=== PATIENT | female | born 1975 | race Caucasian/White ===

== ENCOUNTER 2018-01-20 14:08 | Inpatient (IN) | payer MEDICARE, OTHER ==
[2018-01-20] MEDS ORDERED: SODIUM CHLORIDE 0.9% 1,000 ML IV ONE (15:11)
[2018-01-20 15:38] LABS: Glucose,Whole Blood 104 mg/dL (75-99)
[2018-01-20 15:47] LABS: Anisocytosis Slight; Basophils # (A) 0.1 k/uL (0-0.2); Basophils % (A) 1 %; Eosinophils # (A) 0.1 k/uL (0-0.7); Eosinophils % (A) 1 %; Hypochromasia Marked; Lymphocytes # (A) 1.8 k/uL (1.0-4.8); Lymphocytes % (A) 12 %; MCH 30.3 pg (25.0-35.0); MCHC 30.2 g/dL (31.0-37.0); MCV 100.3 fL (80.0-100.0); Macrocytosis Slight; Mean Platelet Volume 7.5; Monocytes # (A) 0.4 k/uL (0-1.0); Monocytes % (A) 2 %; Neutrophils # (A) 12.6 k/uL (1.3-7.7); Neutrophils % (A) 83 %; Platelet Count 435 k/uL (150-450); RBC 1.96 m/uL (3.80-5.40); RDW 18.5 % (11.5-15.5); WBC 15.3 k/uL (3.8-10.6)
[2018-01-20 15:52] LABS: HCT 19.7 % (34.0-46.0)
[2018-01-20 15:53] LABS: Amphetamine Screen,Urine Detected (NotDetected); Barbiturate Screen,Urine Not Detected (NotDetected); Benzodiazepines Screen,Urine Not Detected (NotDetected); Cocaine Screen,Urine Not Detected (NotDetected); Methadone Screen, Urine Not Detected (NotDetected); Opiate Screen,Urine Detected (NotDetected); Oxycodone Screen, Urine Not Detected (NotDetected); Phencyclidine Screen,Urine Not Detected (NotDetected); Tricyclic Antidepressant,Urine Not Detected (NotDetected); Urn Cannabinoid Scrn Not Detected (NotDetected)
[2018-01-20 15:54] LABS: Appearance,Urine Cloudy (Clear); Color,Urine Yellow; PH, Urine 5.5 (5.0-8.0); Protein,Urine 1+ (Negative); Specific Gravity,Urine 1.015 (1.001-1.035)
[2018-01-20 15:55] LABS: Bacteria,Urine Moderate /hpf; Bilirubin,Urine Negative (Negative); Blood,Urine Small (Negative); Glucose,Urine (UA) Negative (Negative); Hyaline Casts,Urine 19 /lpf (0-2); Ketones,Urine Negative (Negative); Leukocyte Esterase,Urine Large (Negative); Mucus,Urine Rare /hpf; Nitrite,Urine Negative (Negative); RBC,Urine 69 /hpf (0-5); Squamous Epithelial Cell,Urine 1 /hpf (0-4); Urobilinogen,Urine <2.0 mg/dL (<2.0); WBC,Urine >182 /hpf (0-5)
--- NOTE | 2018-01-20 15:57 | XR ---
EXAMINATION TYPE: XR chest 2V DATE OF EXAM: 01/20/2018 COMPARISON: NONE HISTORY: Altered mental status TECHNIQUE: Frontal and lateral views of the chest are obtained. FINDINGS: There is no focal air space opacity, pleural effusion, or pneumothorax seen. The cardiac silhouette size is within normal limits. The osseous structures are intact. There are overlying car diac leads. IMPRESSION: No acute cardiopulmonary process.
[2018-01-20 15:58] LABS: Albumin 3.1 g/dL (3.5-5.0); Calcium 10.7 mg/dL (8.4-10.2); Potassium 3.5 mmol/L (3.5-5.1); Total Protein 7.2 g/dL (6.3-8.2)
[2018-01-20 15:59] LABS: Creatine Kinase <20 U/L (30-135)
[2018-01-20 16:02] LABS: INR 1.2 (<1.2); Partial Thromboplastin Time 24.3 sec (22.0-30.0); Prothrombin Time 11.3 sec (9.0-12.0)
[2018-01-20 16:12] LABS: Creatine Kinase MB 0.2 ng/mL (0.0-2.4); Troponin I <0.012 ng/mL (0.000-0.034)
--- NOTE | 2018-01-20 16:15 | ED ---
Altered Mental Status HPI - General Source: patient, EMS, RN notes reviewed Mode of arrival: EMS Limitations: no limitations <Duane Bhandari - Last Filed: 01/20/18 18:18> <Jerry Ochoa - Last Filed: 01/20/18 18:36> - General Chief Complaint: Altered Mental Status Stated Complaint: ALTERED MENTAL Time Seen by Provider: 01/20/18 14:57 - History of Present Illness Initial Comments: This a 42-year-old female presents emergency department for multiple complaints. Primary complaint is urinary tract infection, back pain. Patient states she's been treated for urinary tract infection last 5 days. Patient states she saw PCP today her that she needed to the hospital because of worsening symptoms. Patient is confused and information is limited. Patient also states that she has some discoloration or bruising to her abdomen in which she believes is related from a heating pad. Patient denies any current chest pain or shortness of breath. She states she's had intermittent headache and dizziness. Patient does admit to dysuria and possible kidney stone. Patient states that she takes dapsone and states that she does not monitor her liver enzymes and states that she was told she may have liver failure secondary to her symptoms. Patient states she does not feel well. She states that she's lost 18 pounds in that she cannot eat or drink anything. (Duane Bhandari) - Related Data Home Medications Medication Instructions Recorded Confirmed Dapsone 100 mg PO DAILY 01/10/14 01/20/18 Zolpidem Tartrate [Ambien] 10 mg PO HS 06/19/14 01/20/18 Albuterol Inhaler [Ventolin Hfa 2 puff INHALATION RT-Q4H PRN 01/20/18 01/20/18 Inhaler] Dextroamphetamine/Amphetamine 30 mg PO BID 01/20/18 01/20/18 [Adderall] Gabapentin [Neurontin] 300 mg PO TID PRN 01/20/18 01/20/18 HYDROcodone/APAP 7.5-325MG [[place] 1 tab PO TID PRN 01/20/18 01/20/18 7.5-325] Hydrocortisone Cream 1 applic TOPICAL BID PRN 01/20/18 01/20/18 [Hydrocortisone 2.5% Cream] Methocarbamol [Robaxin] 500 mg PO Q8H PRN 01/20/18 01/20/18 Nitrofurantoin Monohyd/M-Cryst 100 mg PO Q12HR 01/20/18 01/20/18 [Macrobid] Omeprazole 20 mg PO DAILY PRN 01/20/18 01/20/18 Ranitidine HCl [Zantac] 150 mg PO BID PRN 01/20/18 01/20/18 SUMAtriptan SUCCINATE [Imitrex] 100 mg PO DAILY PRN 01/20/18 01/20/18 Triamcinolone 0.1% Ointment 1 applic TOPICAL BID PRN 01/20/18 01/20/18 [Kenalog 0.1% Ointment] methylPREDNISolone Dose Pack See Taper PO DIRECTED PRN 01/20/18 01/20/18 [Medrol Dose Pack] Allergies Allergy/AdvReac Type Severity Reaction Status Date / Time latex AdvReac Rash/Hives Verified 01/20/18 14:27 Review of Systems ROS Other: All systems not noted in ROS Statement are negative. <Duane Bhandari - Last Filed: 01/20/18 18:18> ROS Other: All systems not noted in ROS Statement are negative. <Jerry Ochoa - Last Filed: 01/20/18 18:36> ROS Statement: Those systems with pertinent positive or pertinent negative responses have been documented in the HPI. Past Medical History Past Medical History: Skin Disorder Additional Past Medical History / Comment(s): DERMATITIS HERPETIFORMUM; Reflex Sympathic Dystrophy History of Any Multi-Drug Resistant Organisms: None Reported Past Surgical History: Section, Hysterectomy, Uterine Ablation Additional Past Surgical History / Comment(s): carpal tunnel surg Past Anesthesia/Blood Transfusion Reactions: Postoperative Nausea & Vomiting ( PONV) Past Psychological History: ADD/ADHD Smoking Status: Former smoker Past Alcohol Use History: Occasional Past Drug Use History: None Reported <Duane Bhandari - Last Filed: 01/20/18 18:18> General Exam Limitations: no limitations General appearance: alert, in no apparent distress, other (Patient is confused) Head exam: Present: atraumatic, normocephalic, normal inspection Eye exam: Present: normal appearance, PERRL, EOMI. Absent: scleral icterus, conjunctival injection, periorbital swelling ENT exam: Present: normal exam, normal oropharynx, mucous membranes moist Respiratory exam: Present: normal lung sounds bilaterally. Absent: respiratory distress, wheezes, rales, rhonchi, stridor Cardiovascular Exam: Present: regular rate, normal rhythm, normal heart sounds. Absent: systolic murmur, diastolic murmur, rubs, gallop, clicks GI/Abdominal exam: Present: soft, tenderness, normal bowel sounds, other ( Mottled appearance). Absent: distended, guarding, rebound, rigid Back exam: Absent: CVA tenderness (R), CVA tenderness (L) Neurological exam: Present: alert, CN II-XII intact Skin exam: Present: warm, dry, intact, normal color. Absent: rash <Duane Bhandari - Last Filed: 01/20/18 18:18> Course <Duane Bhandari - Last Filed: 01/20/18 18:18> <Jerry Ochoa - Last Filed: 01/20/18 18:36> Vital Signs 01/20/18 01/20/18 01/20/18 14:10 14:29 15:00 Temperature 97.9 F Pulse Rate 96 98 Respiratory 18 18 Rate Blood Pressure 131/86 131/86 O2 Sat by Pulse 99 96 98 Oximetry 01/20/18 01/20/18 01/20/18 16:00 17:00 18:00 Temperature Pulse Rate 95 91 85 Respiratory 18 18 18 Rate Blood Pressure 113/86 120/74 126/78 O2 Sat by Pulse 99 94 L 96 Oximetry - Reevaluation(s) Reevaluation #1: 01/20/18 16:21 Patient updated on labs that have resulted. Patient's found have anemia hemoglobin of 6. I did advise her that she needs to have a rectal exam at this time to see if she has noted blood. Patient is refusing. She states that she has a hemorrhoid and states that she cannot tolerate the pain. Patient is still slightly confused. She is also today that she has a continued urinary tract infection. (Duane Bhandari) Reevaluation #2: 01/20/18 16:24 Patient is found to have acute renal failure, elevated alk phos. Patient has CT abdomen and pelvis without contrast to rule out kidney stone, obstructive process. Most likely renal failure related to dehydration, prerenal 01/20/18 16:25 Antibiotics are ordered for urine recheck infection urine culture ordered (Duane Bhandari) Medical Decision Making - Lab Data Result diagrams: 01/20/18 15:03 01/20/18 15:03 <Duane Bhandari - Last Filed: 01/20/18 18:18> - Lab Data Result diagrams: 01/20/18 15:03 01/20/18 15:03 <Jerry Ochoa - Last Filed: 01/20/18 18:36> - Medical Decision Making 42-year-old female presented return for abdominal pain issues. Patient is found a urinary tract infection, structural renal stone, renal mass, anemia. Patient will be admitted for further evaluation and treatment. (Duane Bhandari) 42-year-old female with flank pain. Patient is a poor historian, she is confused, technically alert and oriented 3. Patient has urinary tract infection with 9 mm left-sided obstructive kidney stone with hydroureter or hydronephrosis. She is acute renal failure with a creatinine of 2.3. Elevated white blood cell count 15.3, hemoglobin 6.0. She does receive transfusion. She started on IV antibiotics awaiting culture results. Case is discussed with the admitting physician and Dr. Edwards, patient will be kept nothing by mouth, continued on antibiotics. Symptoms including confusion may be related to uremia and sepsis secondary to UTI with obstructing renal calculus. (Jerry Ochoa) - Lab Data Lab Results 01/20/18 01/20/18 01/20/18 Range/Units 15:00 15:03 15:03 WBC (3.8-10.6) k/uL RBC (3.80-5.40) m/uL Hgb (11.4-16.0) gm/dL Hct (34.0-46.0) % MCV (80.0-100.0) fL MCH (25.0-35.0) pg MCHC (31.0-37.0) g/dL RDW (11.5-15.5) % Plt Count (150-450) k/uL Neutrophils % % Lymphocytes % % Monocytes % % Eosinophils % % Basophils % % Neutrophils # (1.3-7.7) k/uL Lymphocytes # (1.0-4.8) k/uL Monocytes # (0-1.0) k/uL Eosinophils # (0-0.7) k/uL Basophils # (0-0.2) k/uL Manual Slide Review Large Platelets Polychromasia Hypochromasia Poikilocytosis (manual Anisocytosis Macrocytosis PT (9.0-12.0) sec INR (<1.2) APTT (22.0-30.0) sec Sodium (137-145) mmol/L Potassium (3.5-5.1) mmol/L Chloride (98-107) mmol/L Carbon Dioxide (22-30) mmol/L Anion Gap mmol/L BUN (7-17) mg/dL Creatinine (0.52-1.04) mg/dL Est GFR (CKD-EPI)AfAm (>60 ml/min/1.73 sqM) Est GFR (CKD-EPI)NonAf (>60 ml/min/1.73 sqM) Glucose (74-99) mg/dL POC Glucose (mg/dL) (75-99) mg/dL POC Glu Motion Picture Actor ID Plasma Lactic Acid Choco 1.0 (0.7-2.0) mmol/L Calcium (8.4-10.2) mg/dL Total Bilirubin (0.2-1.3) mg/dL AST (14-36) U/L ALT (9-52) U/L Alkaline Phosphatase (38-126) U/L Ammonia 17 (<30) umol/L Total Creatine Kinase <20 L (30-135) U/L CK-MB (CK-2) 0.2 (0.0-2.4) ng/mL CK-MB (CK-2) Rel Index Troponin I <0.012 (0.000-0.034) ng/mL Total Protein (6.3-8.2) g/dL Albumin (3.5-5.0) g/dL Urine Color Urine Appearance (Clear) Urine pH (5.0-8.0) Ur Specific [place] (1.001-1.035) Urine Protein (Negative) Urine Glucose (UA) (Negative) Urine Ketones (Negative) Urine Blood (Negative) Urine Nitrite (Negative) Urine Bilirubin (Negative) Urine Urobilinogen (<2.0) mg/dL Ur Leukocyte Esterase (Negative) Urine RBC (0-5) /hpf Urine WBC (0-5) /hpf Urine WBC Clumps (None) /hpf Ur Squamous Epith Cells (0-4) /hpf Urine Bacteria (None) /hpf Hyaline Casts (0-2) /lpf Urine Mucus (None) /hpf Urine Opiates Screen (NotDetected) Ur Oxycodone Screen (NotDetected) Urine Methadone Screen (NotDetected) Ur Propoxyphene Screen (NotDetected) Ur Barbiturates Screen (NotDetected) U Tricyclic Antidepress (NotDetected) Ur Phencyclidine Scrn (NotDetected) Ur Amphetamines Screen (NotDetected) U Methamphetamines Scrn (NotDetected) U Benzodiazepines Scrn (NotDetected) Urine Cocaine Screen (NotDetected) U Marijuana (THC) Screen (NotDetected) Hepatitis A IgM Ab Blood Type O Positive Blood Type Recheck CABO Indicated Antibody Screen NEGATIVE Spec Expiration Date 01/23/2018 - 229901/20/18 01/20/18 01/20/18 Range/Units 15:03 15:03 15:03 WBC 15.3 H (3.8-10.6) k/uL RBC 1.96 L (3.80-5.40) m/uL Hgb 6.0 L* (11.4-16.0) gm/dL Hct 19.7 L* (34.0-46.0) % MCV 100.3 H (80.0-100.0) fL MCH 30.3 (25.0-35.0) pg MCHC 30.2 L (31.0-37.0) g/dL RDW 18.5 H (11.5-15.5) % Plt Count 435 (150-450) k/uL Neutrophils % 83 % Lymphocytes % 12 % Monocytes % 2 % Eosinophils % 1 % Basophils % 1 % Neutrophils # 12.6 H (1.3-7.7) k/uL Lymphocytes # 1.8 (1.0-4.8) k/uL Monocytes # 0.4 (0-1.0) k/uL Eosinophils # 0.1 (0-0.7) k/uL Basophils # 0.1 (0-0.2) k/uL Manual Slide Review Performed Large Platelets Present Polychromasia Present Hypochromasia Marked Poikilocytosis (manual Present Anisocytosis Slight Macrocytosis Slight PT (9.0-12.0) sec INR (<1.2) APTT (22.0-30.0) sec Sodium 133 L (137-145) mmol/L Potassium 3.5 (3.5-5.1) mmol/L Chloride 106 (98-107) mmol/L Carbon Dioxide 13 L (22-30) mmol/L Anion Gap 14 mmol/L BUN 33 H (7-17) mg/dL Creatinine 2.30 H (0.52-1.04) mg/dL Est GFR (CKD-EPI)AfAm 30 (>60 ml/min/1.73 sqM) Est GFR (CKD-EPI)NonAf 26 (>60 ml/min/1.73 sqM) Glucose 92 (74-99) mg/dL POC Glucose (mg/dL) (75-99) mg/dL POC Glu Motion Picture Actor ID Plasma Lactic Acid Choco (0.7-2.0) mmol/L Calcium 10.7 H (8.4-10.2) mg/dL Total Bilirubin 1.0 (0.2-1.3) mg/dL AST 69 H (14-36) U/L ALT 39 (9-52) U/L Alkaline Phosphatase 632 H (38-126) U/L Ammonia (<30) umol/L Total Creatine Kinase (30-135) U/L CK-MB (CK-2) (0.0-2.4) ng/mL CK-MB (CK-2) Rel Index Troponin I (0.000-0.034) ng/mL Total Protein 7.2 (6.3-8.2) g/dL Albumin 3.1 L (3.5-5.0) g/dL Urine Color Urine Appearance (Clear) Urine pH (5.0-8.0) Ur Specific [place] (1.001-1.035) Urine Protein (Negative) Urine Glucose (UA) (Negative) Urine Ketones (Negative) Urine Blood (Negative) Urine Nitrite (Negative) Urine Bilirubin (Negative) Urine Urobilinogen (<2.0) mg/dL Ur Leukocyte Esterase (Negative) Urine RBC (0-5) /hpf Urine WBC (0-5) /hpf Urine WBC Clumps (None) /hpf Ur Squamous Epith Cells (0-4) /hpf Urine Bacteria (None) /hpf Hyaline Casts (0-2) /lpf Urine Mucus (None) /hpf Urine Opiates Screen Detected H (NotDetected) Ur Oxycodone Screen Not Detected (NotDetected) Urine Methadone Screen Not Detected (NotDetected) Ur Propoxyphene Screen Not Detected (NotDetected) Ur Barbiturates Screen Not Detected (NotDetected) U Tricyclic Antidepress Not Detected (NotDetected) Ur Phencyclidine Scrn Not Detected (NotDetected) Ur Amphetamines Screen Detected H (NotDetected) U Methamphetamines Scrn Not Detected (NotDetected) U Benzodiazepines Scrn Not Detected (NotDetected) Urine Cocaine Screen Not Detected (NotDetected) U Marijuana (THC) Screen Not Detected (NotDetected) Hepatitis A IgM Ab Blood Type Blood Type Recheck Antibody Screen Spec Expiration Date 01/20/18 01/20/18 01/20/18 Range/Units 15:03 15:03 15:29 WBC (3.8-10.6) k/uL RBC (3.80-5.40) m/uL Hgb (11.4-16.0) gm/dL Hct (34.0-46.0) % MCV (80.0-100.0) fL MCH (25.0-35.0) pg MCHC (31.0-37.0) g/dL RDW (11.5-15.5) % Plt Count (150-450) k/uL Neutrophils % % Lymphocytes % % Monocytes % % Eosinophils % % Basophils % % Neutrophils # (1.3-7.7) k/uL Lymphocytes # (1.0-4.8) k/uL Monocytes # (0-1.0) k/uL Eosinophils # (0-0.7) k/uL Basophils # (0-0.2) k/uL Manual Slide Review Large Platelets Polychromasia Hypochromasia Poikilocytosis (manual Anisocytosis Macrocytosis PT 11.3 (9.0-12.0) sec INR 1.2 H (<1.2) APTT 24.3 (22.0-30.0) sec Sodium (137-145) mmol/L Potassium (3.5-5.1) mmol/L Chloride (98-107) mmol/L Carbon Dioxide (22-30) mmol/L Anion Gap mmol/L BUN (7-17) mg/dL Creatinine (0.52-1.04) mg/dL Est GFR (CKD-EPI)AfAm (>60 ml/min/1.73 sqM) Est GFR (CKD-EPI)NonAf (>60 ml/min/1.73 sqM) Glucose (74-99) mg/dL POC Glucose (mg/dL) 104 H (75-99) mg/dL POC Glu Motion Picture Actor ID Shreya Adkins Plasma Lactic Acid [place]oco (0.7-2.0) mmol/L Calcium (8.4-10.2) mg/dL Total Bilirubin (0.2-1.3) mg/dL AST (14-36) U/L ALT (9-52) U/L Alkaline Phosphatase (38-126) U/L Ammonia (<30) umol/L Total Creatine Kinase (30-135) U/L CK-MB (CK-2) (0.0-2.4) ng/mL CK-MB (CK-2) Rel Index Troponin I (0.000-0.034) ng/mL Total Protein (6.3-8.2) g/dL Albumin (3.5-5.0) g/dL Urine Color Yellow Urine Appearance Cloudy H (Clear) Urine pH 5.5 (5.0-8.0) Ur Specific [place] 1.015 (1.001-1.035) Urine Protein 1+ H (Negative) Urine Glucose (UA) Negative (Negative) Urine Ketones Negative (Negative) Urine Blood Small H (Negative) Urine Nitrite Negative (Negative) Urine Bilirubin Negative (Negative) Urine Urobilinogen <2.0 (<2.0) mg/dL Ur Leukocyte Esterase Large H (Negative) Urine RBC 69 H (0-5) /hpf Urine WBC >182 H (0-5) /hpf Urine WBC Clumps Moderate H (None) /hpf Ur Squamous Epith Cells 1 (0-4) /hpf Urine Bacteria Moderate H (None) /hpf Hyaline Casts 19 H (0-2) /lpf Urine Mucus Rare H (None) /hpf Urine Opiates Screen (NotDetected) Ur Oxycodone Screen (NotDetected) Urine Methadone Screen (NotDetected) Ur Propoxyphene Screen (NotDetected) Ur Barbiturates Screen (NotDetected) U Tricyclic Antidepress (NotDetected) Ur Phencyclidine Scrn (NotDetected) Ur Amphetamines Screen (NotDetected) U Methamphetamines Scrn (NotDetected) U Benzodiazepines Scrn (NotDetected) Urine Cocaine Screen (NotDetected) U Marijuana (THC) Screen (NotDetected) Hepatitis A IgM Ab Blood Type Blood Type Recheck Antibody Screen Spec Expiration Date 01/20/18 Range/Units 15:37 WBC (3.8-10.6) k/uL RBC (3.80-5.40) m/uL Hgb (11.4-16.0) gm/dL Hct (34.0-46.0) % MCV (80.0-100.0) fL MCH (25.0-35.0) pg MCHC (31.0-37.0) g/dL RDW (11.5-15.5) % Plt Count (150-450) k/uL Neutrophils % % Lymphocytes % % Monocytes % % Eosinophils % % Basophils % % Neutrophils # (1.3-7.7) k/uL Lymphocytes # (1.0-4.8) k/uL Monocytes # (0-1.0) k/uL Eosinophils # (0-0.7) k/uL Basophils # (0-0.2) k/uL Manual Slide Review Large Platelets Polychromasia Hypochromasia Poikilocytosis (manual Anisocytosis Macrocytosis PT (9.0-12.0) sec INR (<1.2) APTT (22.0-30.0) sec Sodium (137-145) mmol/L Potassium (3.5-5.1) mmol/L Chloride (98-107) mmol/L Carbon Dioxide (22-30) mmol/L Anion Gap mmol/L BUN (7-17) mg/dL Creatinine (0.52-1.04) mg/dL Est GFR (CKD-EPI)AfAm (>60 ml/min/1.73 sqM) Est GFR (CKD-EPI)NonAf (>60 ml/min/1.73 sqM) Glucose (74-99) mg/dL POC Glucose (mg/dL) (75-99) mg/dL POC Glu Motion Picture Actor ID Plasma Lactic Acid [place]oco (0.7-2.0) mmol/L Calcium (8.4-10.2) mg/dL Total Bilirubin (0.2-1.3) mg/dL AST (14-36) U/L ALT (9-52) U/L Alkaline Phosphatase (38-126) U/L Ammonia (<30) umol/L Total Creatine Kinase (30-135) U/L CK-MB (CK-2) (0.0-2.4) ng/mL CK-MB (CK-2) Rel Index Troponin I (0.000-0.034) ng/mL Total Protein (6.3-8.2) g/dL Albumin (3.5-5.0) g/dL Urine Color Urine Appearance (Clear) Urine pH (5.0-8.0) Ur Specific [place] (1.001-1.035) Urine Protein (Negative) Urine Glucose (UA) (Negative) Urine Ketones (Negative) Urine Blood (Negative) Urine Nitrite (Negative) Urine Bilirubin (Negative) Urine Urobilinogen (<2.0) mg/dL Ur Leukocyte Esterase (Negative) Urine RBC (0-5) /hpf Urine WBC (0-5) /hpf Urine WBC Clumps (None) /hpf Ur Squamous Epith Cells (0-4) /hpf Urine Bacteria (None) /hpf Hyaline Casts (0-2) /lpf Urine Mucus (None) /hpf Urine Opiates Screen (NotDetected) Ur Oxycodone Screen (NotDetected) Urine Methadone Screen (NotDetected) Ur Propoxyphene Screen (NotDetected) Ur Barbiturates Screen (NotDetected) U Tricyclic Antidepress (NotDetected) Ur Phencyclidine Scrn (NotDetected) Ur Amphetamines Screen (NotDetected) U Methamphetamines Scrn (NotDetected) U Benzodiazepines Scrn (NotDetected) Urine Cocaine Screen (NotDetected) U Marijuana (THC) Screen (NotDetected) Hepatitis A IgM Ab NEGATIVE Blood Type Blood Type Recheck Antibody Screen Spec Expiration Date Critical Care Time Critical Care Time: Yes Total Critical Care Time: 35 <Duane Bhandari M - Last Filed: 01/20/18 18:18> <Jerry Ochoa - Last Filed: 01/20/18 18:36> Critical Care Time: Patient is found to be have significant abnormality's. Patient has acute anemia with hemoglobin 6.0. Patient did refuse rectal exam at this time. Patient we transfuse 1 unit for anemia less than 7. Patient will have repeat H& H. Patient also has acute renal failure in which the patient was hydrated secondary dehydration this may be prerenal along with obstructive uropathy secondary to obstructive stone. Patient was given 1 g of Rocephin for urinary tract infection, urine culture was obtained patient be continued on Rocephin 1 g every 12 hours. Urology will be consult for obstructive stone possible renal mass and concern for renal cancer. Patient is also had some confusion possibly related to her infection though neurology will be consult for her confusion and altered mental status. All lab results were reviewed, all imaging was reviewed and interpreted and patient updated on results (Duane Bhandari) Disposition <Duane Bhandari - Last Filed: 01/20/18 18:18> <Jerry Ochoa - Last Filed: 01/20/18 18:36> Clinical Impression: Anemia, Hydronephrosis with renal and ureteral calculus obstruction, Urinary tract infection, Altered mental status, Acute renal failure Disposition: ADMITTED IP TO THIS HOSP Condition: Fair Referrals: Eddie Barcenas MD [Primary Care Provider] - 1-2 days
[2018-01-20] MEDS ORDERED: ONDANSETRON 4 MG/2 ML VIAL IVP STA (16:22)
[2018-01-20] MEDS ORDERED: PANTOPRAZOLE 40 MG/10 ML VIAL IVP STA (16:22)
[2018-01-20] MEDS ORDERED: MORPHINE SULFATE 2 MG/ML SYRINGE IVP ONE (16:22)
[2018-01-20 16:30] LABS: Large Platelets Present; Poikilocytosis (M) Present; Polychromasia Present
--- NOTE | 2018-01-20 16:32 | CT ---
EXAMINATION TYPE: CT brain wo con DATE OF EXAM: 01/20/2018 COMPARISON: None INDICATION: weakness and dizziness DLP: 1031.4 mGycm, Automated exposure control for dose reduction was used. CONTRAST: None CT of the brain is performed utilizing 3 mm thick sections through the posterior fossa and 3 mm thick sections through the remaining calvarium. Study is performed within 24 hours of arrival to the hosp [facility]. No abnormal hyperdensity is present to suggest an acute intracranial hemorrhage. No mass lesion is evident. No acute infarcts are evident. Ventricles and sulci are appropriate for the patient age. Paranasal sinuses and mastoid air cells within the [id number] are clear. IMPRESSIONS: 1. Normal CT Brain
[2018-01-20 17:21] LABS: Hepatitis A AB IgM Index 0.01; Hepatitis A Antibody IgM NEGATIVE
--- NOTE | 2018-01-20 17:54 | CT ---
EXAMINATION TYPE: CT abdomen pelvis wo con DATE OF EXAM: 01/20/2018 COMPARISON: None HISTORY: Abdominal and back pain. CT DLP: 333.7 mGycm Automated exposure control for dose reduction was used. TECHNIQUE: Helical acquisition of images was performed from the lung bases through the pelvis. FINDINGS: Lung bases are clear. There is no pleural effusion. There is no pericardial effusion. Liver spleen pancreas appear normal. Bile ducts are not dilated. There is no adrenal mass. There is left-sided hydronephrosis. There are several large calculi in the lower pole left kidney. These measure up to 1 cm. There is left-sided hydroureter and 9 mm calculus i n the lower left ureter. Bladder distends smoothly. There is no inguinal hernia. I see no pelvic mass . There is no free fluid in the pelvis. Appendix appears normal. Lumbar spine is intact. I see no bony destructive process. Bony pelvis is in tact. There is no mesenteric edema. I see no intestinal wall thickening. There are no dilated loops. The right kidney is enlarged involving the lower end lateral aspect of the kidney. I see no hydroneph rosis on the right side. IMPRESSION: THERE ARE LEFT RENAL CALCULI. THERE IS OBSTRUCTING CALCULUS IN THE LOWER LEFT URETER WITH HYDRONEPHRO SIS. THERE IS ABNORMAL ENLARGEMENT OF THE LOWER POLE OF THE RIGHT KIDNEY. RENAL MASS IS POSSIBLE. THIS COU LD BE PYELONEPHRITIS. FOLLOW-UP IS RECOMMENDED. CONTRAST CT SCAN WOULD BE USEFUL FOR FURTHER EVALUATI ON OF CLINICALLY INDICATED.
[2018-01-20] MEDS ORDERED: ONDANSETRON 4 MG/2 ML VIAL IVP PRN (18:22)
[2018-01-20] MEDS ORDERED: NALOXONE 0.4 MG/ML 1 ML VIAL IV PRN (18:22)
[2018-01-20] MEDS: MORPHINE SULFATE 4 MG/ML SYRINGE IV PRN (20:11)
[2018-01-20] MEDS ORDERED: SUMAtriptan SUCCINATE 50 MG TAB PO PRN (20:32)
[2018-01-20] MEDS ORDERED: ALBUTEROL NEBULIZED 2.5 MG/3 ML INHALATION PRN (20:32)
[2018-01-20] MEDS ORDERED: TRIAMCINOLONE ACET 0.1% OINTMENT 15 GM TUBE TOPICAL PRN (20:32)
[2018-01-20] MEDS ORDERED: PANTOPRAZOLE 40 MG TABLET PO PRN (20:32)
[2018-01-20] MEDS ORDERED: TRIAMCINOLONE 0.1% CREAM 80 GM TUBE TOPICAL PRN (20:32)
--- NOTE | 2018-01-20 21:17 | HP ---
HISTORY AND PHYSICAL DATE OF SERVICE: 01/20/2018 CHIEF COMPLAINTS: Change in mental status and abdominal pain. HISTORY OF PRESENT ILLNESS: This 42-year-old woman with a past medical history of multiple medical problems including dermatitis herpetiformis, RSD, section, recently had abdominal pain and the patient was found to have UTI and patient on antibiotics, but because of increasing abdominal pain and some confusion, patient came to [facility] admitted for evaluation and treatment. A CT scan showed left hydronephrosis with left renal calculi. There is no history of fever, rigors, headache, loss of consciousness or seizures. PAST MEDICAL HISTORY: Dermatitis herpetiformis, RSD, section, history of hysterectomy. MEDICATIONS: Prior to admission home medications are: 1. Medrol Dosepak. 2. Ambien 10 mg q.h.s. 3. Kenalog topically b.i.d. 4. Imitrex 100 mg daily p.r.n. 5. Zantac 150 mg b.i.d. p.r.n. 6. Omeprazole 20 mg daily. 7. Macrobid 100 mg p.o. b.i.d. 8. Robaxin 500 mg q.8h p.r.n. 9. Hydrocortisone 2.5%. 10.Korbel 7.5 t.i.d. p.r.n. 11.Neurontin 300 mg t.i.d. p.r.n. 12.Adderall 30 mg p.o. b.i.d. 13.Dapsone 100 mg p.o. daily. 14.Ventolin HFA 2 puffs q.4h p.r.n. ALLERGIES: LATEX. FAMILY HISTORY: No history of heart disease or strokes in the family. SOCIAL HISTORY: Previous history of smoking, occasional alcohol intake. REVIEW OF SYSTEMS: ENT: No diminished hearing or vision. CARDIOVASCULAR: No angina. RESPIRATORY: As mentioned. GI: As mentioned earlier. : As mentioned earlier. NERVOUS SYSTEMS: As mentioned earlier. ALLERGY/IMMUNOLOGY: No asthma or hayfever. MUSCULOSKELETAL: As mentioned earlier. HEMATOLOGY: No history anemia. ENDOCRINE: No history of diabetes or hypothyroidism. CONSTITUTIONAL: As mentioned earlier. DERMATOLOGY: Negative. RHEUMATOLOGY: Negative. PSYCHIATRY: As mentioned earlier. PHYSICAL EXAMINATION: Alert and oriented x3. Pulse 82, blood pressure 115/77, respiration 18, temperature 97.7, pulse ox 100 percent on room air. HEENT: Conjunctivae normal. Oral mucosa moist. Neck is no jugular venous distention. No carotid bruit. No lymph node enlargement. CARDIOVASCULAR: S1, S2. No S3, no S4. RESPIRATORY: Breath sounds diminished in the bases. No rhonchi, no crackles. ABDOMEN: Soft, mild diffuse discomfort on palpation. LEGS: No edema, no swelling. NERVOUS SYSTEM: Higher functions as mentioned. Moves all four limbs. No focal motor deficit. LYMPHATICS: No lymphadenopathy in the neck, axillae, groin. SKIN: No ulcer, rash or bleeding. LABS: WBC 15.2, hemoglobin 6 and INR is 1.2. Creatinine is 2.30. UA noted, WBC clumps. Hepatitis A is negative. ASSESSMENT: 1. Urinary tract infection with sepsis. 2. Change in mental status, possible acute metabolic acidosis. 3. Anemia microcytic, undetermined etiology. 4. Increased WBC. 5. Increased creatinine with possible acute renal failure possibly prerenal. 6. Increased AST. 7. History of dermatitis herpetiformis. 8. RSD. 9. Hysterectomy. 10.History of carpal tunnel syndrome. 11.ADHD. 12.Remote history of nicotine dependence. RECOMMENDATIONS AND DISCUSSION: This 42-year-old woman who presented with multiple complex medical issues, at this time I recommend to continue current treatment. I would transfuse the patient and continue to monitor. Otherwise, the patient has multiple abnormalities and I would also recommend IV antibiotics. Urology consulted for the nephrolithiasis. Otherwise, I would also recommend nephrology evaluation as well. Stool O/P will be checked and hematology oncology also will be consulted for evaluation of anemia as well. A detailed exam and smear will also be arranged and guarded prognosis. Further recommendations to follow. MMODL / IJN: [id number] /
[2018-01-20] MEDS: HYDROcodone/APAP 5-325MG 1 EACH TAB PO PRN (21:53)
[2018-01-20] MEDS: SODIUM CHLORIDE 0.9% 1,000 ML IV SCH (22:09)
--- NOTE | 2018-01-20 23:07 | P.GSCN ---
History of Present Illness Consult date: 01/20/18 Reason for Consult: Left ureteral calculus Requesting physician: Debbie Rivas History of present illness: The patient is a 42-year-old white female with a 2 week history of back and abdominal pain. She describes the pain has been predominantly right-sided. She is a vague historian. She denies any prior history of urolithiasis. She has been treated with antibiotics as an outpatient, but states that her symptoms have worsened. She has also been noted to be confused. Evaluation in the emergency room has included a computed tomography scan, which revealed left renal calculi as well as left hydronephrosis due to a 9 mm left distal ureteral calculus. Review of Systems - Constitutional Denies chills, Denies fever - Cardiovascular Denies chest pain, Denies dyspnea on exertion - Gastrointestinal Denies nausea, Denies vomiting Past Medical History Past Medical History: Skin Disorder Additional Past Medical History / Comment(s): DERMATITIS HERPETIFORMUM; Reflex Sympathic Dystrophy History of Any Multi-Drug Resistant Organisms: None Reported Past Surgical History: Section, Hysterectomy, Uterine Ablation Additional Past Surgical History / Comment(s): carpal tunnel surg Past Anesthesia/Blood Transfusion Reactions: Postoperative Nausea & Vomiting ( PONV) Past Psychological History: ADD/ADHD Smoking Status: Former smoker Past Alcohol Use History: Occasional Past Drug Use History: None Reported Medications and Allergies Home Medications Medication Instructions Recorded Confirmed Type Dapsone 100 mg PO DAILY 01/10/14 01/20/18 History Zolpidem Tartrate [Ambien] 10 mg PO HS 06/19/14 01/20/18 History Albuterol Inhaler [Ventolin Hfa 2 puff INHALATION RT-Q4H PRN 01/20/18 01/20/18 History Inhaler] Dextroamphetamine/Amphetamine 30 mg PO BID 01/20/18 01/20/18 History [Adderall] Gabapentin [Neurontin] 300 mg PO TID PRN 01/20/18 01/20/18 History HYDROcodone/APAP 7.5-325MG [Flora 1 tab PO TID PRN 01/20/18 01/20/18 History 7.5-325] Hydrocortisone Cream 1 applic TOPICAL BID PRN 01/20/18 01/20/18 History [Hydrocortisone 2.5% Cream] Methocarbamol [Robaxin] 500 mg PO Q8H PRN 01/20/18 01/20/18 History Nitrofurantoin Monohyd/M-Cryst 100 mg PO Q12HR 01/20/18 01/20/18 History [Macrobid] Omeprazole 20 mg PO DAILY PRN 01/20/18 01/20/18 History Ranitidine HCl [Zantac] 150 mg PO BID PRN 01/20/18 01/20/18 History SUMAtriptan SUCCINATE [Imitrex] 100 mg PO DAILY PRN 01/20/18 01/20/18 History Triamcinolone 0.1% Ointment 1 applic TOPICAL BID PRN 01/20/18 01/20/18 History [Kenalog 0.1% Ointment] methylPREDNISolone Dose Pack See Taper PO DIRECTED PRN 01/20/18 01/20/18 History [Medrol Dose Pack] Allergies Allergy/AdvReac Type Severity Reaction Status Date / Time latex AdvReac Rash/Hives Verified 01/20/18 14:27 Surgical - Exam Vital Signs Temp Pulse Resp BP Pulse Ox 97.9 F 96 18 131/86 99 01/20/18 14:10 01/20/18 14:10 01/20/18 14:10 01/20/18 14:10 01/20/18 14:10 - General well developed, well nourished, no distress - Respiratory normal respiratory effort - Abdomen Abdomen: soft, tender, no guarding, no rigid, no rebound, no distended - Psychiatric oriented to time, oriented to person, oriented to place, speech is normal Results - Labs 01/20/18 15:03 01/20/18 15:03 Abnormal Lab Results - Last 24 Hours (Table) 01/20/18 01/20/18 01/20/18 Range/Units 15:00 15:03 15:03 WBC 15.3 H (3.8-10.6) k/uL RBC 1.96 L (3.80-5.40) m/uL Hgb 6.0 L* (11.4-16.0) gm/dL Hct 19.7 L* (34.0-46.0) % MCV 100.3 H (80.0-100.0) fL MCHC 30.2 L (31.0-37.0) g/dL RDW 18.5 H (11.5-15.5) % Neutrophils # 12.6 H (1.3-7.7) k/uL INR (<1.2) Sodium (137-145) mmol/L Carbon Dioxide (22-30) mmol/L BUN (7-17) mg/dL Creatinine (0.52-1.04) mg/dL POC Glucose (mg/dL) (75-99) mg/dL Calcium (8.4-10.2) mg/dL AST (14-36) U/L Alkaline Phosphatase (38-126) U/L Total Creatine Kinase <20 L (30-135) U/L Albumin (3.5-5.0) g/dL Urine Appearance (Clear) Urine Protein (Negative) Urine Blood (Negative) Ur Leukocyte Esterase (Negative) Urine RBC (0-5) /hpf Urine WBC (0-5) /hpf Urine WBC Clumps (None) /hpf Urine Bacteria (None) /hpf Hyaline Casts (0-2) /lpf Urine Mucus (None) /hpf Urine Opiates Screen (NotDetected) Ur Amphetamines Screen (NotDetected) Crossmatch See Detail 01/20/18 01/20/18 01/20/18 Range/Units 15:03 15:03 15:03 WBC (3.8-10.6) k/uL RBC (3.80-5.40) m/uL Hgb (11.4-16.0) gm/dL Hct (34.0-46.0) % MCV (80.0-100.0) fL MCHC (31.0-37.0) g/dL RDW (11.5-15.5) % Neutrophils # (1.3-7.7) k/uL INR 1.2 H (<1.2) Sodium 133 L (137-145) mmol/L Carbon Dioxide 13 L (22-30) mmol/L BUN 33 H (7-17) mg/dL Creatinine 2.30 H (0.52-1.04) mg/dL POC Glucose (mg/dL) (75-99) mg/dL Calcium 10.7 H (8.4-10.2) mg/dL AST 69 H (14-36) U/L Alkaline Phosphatase 632 H (38-126) U/L Total Creatine Kinase (30-135) U/L Albumin 3.1 L (3.5-5.0) g/dL Urine Appearance (Clear) Urine Protein (Negative) Urine Blood (Negative) Ur Leukocyte Esterase (Negative) Urine RBC (0-5) /hpf Urine WBC (0-5) /hpf Urine WBC Clumps (None) /hpf Urine Bacteria (None) /hpf Hyaline Casts (0-2) /lpf Urine Mucus (None) /hpf Urine Opiates Screen Detected H (NotDetected) Ur Amphetamines Screen Detected H (NotDetected) Crossmatch 01/20/18 01/20/18 Range/Units 15:03 15:29 WBC (3.8-10.6) k/uL RBC (3.80-5.40) m/uL Hgb (11.4-16.0) gm/dL Hct (34.0-46.0) % MCV (80.0-100.0) fL MCHC (31.0-37.0) g/dL RDW (11.5-15.5) % Neutrophils # (1.3-7.7) k/uL INR (<1.2) Sodium (137-145) mmol/L Carbon Dioxide (22-30) mmol/L BUN (7-17) mg/dL Creatinine (0.52-1.04) mg/dL POC Glucose (mg/dL) 104 H (75-99) mg/dL Calcium (8.4-10.2) mg/dL AST (14-36) U/L Alkaline Phosphatase (38-126) U/L Total Creatine Kinase (30-135) U/L Albumin (3.5-5.0) g/dL Urine Appearance Cloudy H (Clear) Urine Protein 1+ H (Negative) Urine Blood Small H (Negative) Ur Leukocyte Esterase Large H (Negative) Urine RBC 69 H (0-5) /hpf Urine WBC >182 H (0-5) /hpf Urine WBC Clumps Moderate H (None) /hpf Urine Bacteria Moderate H (None) /hpf Hyaline Casts 19 H (0-2) /lpf Urine Mucus Rare H (None) /hpf Urine Opiates Screen (NotDetected) Ur Amphetamines Screen (NotDetected) Crossmatch Diabetes panel 01/20/18 Range/Units 15:03 Sodium 133 L (137-145) mmol/L Potassium 3.5 (3.5-5.1) mmol/L Chloride 106 (98-107) mmol/L Carbon Dioxide 13 L (22-30) mmol/L BUN 33 H (7-17) mg/dL Creatinine 2.30 H (0.52-1.04) mg/dL Glucose 92 (74-99) mg/dL Calcium 10.7 H (8.4-10.2) mg/dL AST 69 H (14-36) U/L ALT 39 (9-52) U/L Alkaline Phosphatase 632 H (38-126) U/L Total Protein 7.2 (6.3-8.2) g/dL Albumin 3.1 L (3.5-5.0) g/dL Calcium panel 01/20/18 Range/Units 15:03 Calcium 10.7 H (8.4-10.2) mg/dL Albumin 3.1 L (3.5-5.0) g/dL Pituitary panel 01/20/18 Range/Units 15:03 Sodium 133 L (137-145) mmol/L Potassium 3.5 (3.5-5.1) mmol/L Chloride 106 (98-107) mmol/L Carbon Dioxide 13 L (22-30) mmol/L BUN 33 H (7-17) mg/dL Creatinine 2.30 H (0.52-1.04) mg/dL Glucose 92 (74-99) mg/dL Calcium 10.7 H (8.4-10.2) mg/dL Adrenal panel 01/20/18 Range/Units 15:03 Sodium 133 L (137-145) mmol/L Potassium 3.5 (3.5-5.1) mmol/L Chloride 106 (98-107) mmol/L Carbon Dioxide 13 L (22-30) mmol/L BUN 33 H (7-17) mg/dL Creatinine 2.30 H (0.52-1.04) mg/dL Glucose 92 (74-99) mg/dL Calcium 10.7 H (8.4-10.2) mg/dL Total Bilirubin 1.0 (0.2-1.3) mg/dL AST 69 H (14-36) U/L ALT 39 (9-52) U/L Alkaline Phosphatase 632 H (38-126) U/L Total Protein 7.2 (6.3-8.2) g/dL Albumin 3.1 L (3.5-5.0) g/dL - Imaging CT scan - abdomen: report reviewed, image reviewed Assessment and Plan (1) Hydronephrosis with renal and ureteral calculus obstruction Current Visit: Yes Status: Acute Code(s): N13.2 - HYDRONEPHROSIS WITH RENAL AND URETERAL CALCULOUS OBSTRUCTION SNOMED Code(s): 192477586 (2) Urinary tract infection Current Visit: Yes Status: Acute Code(s): N39.0 - URINARY TRACT INFECTION, SITE NOT SPECIFIED SNOMED Code(s): 82323915 Plan: The patient is a 42-year-old white female with an apparent UTI, complicated by an obstructing ureteral calculus. Although she does not exhibit signs of sepsis , one of her presenting symptoms his confusion and a cause for this has not been identified. She has multiple coexisting problems, including marked anemia. The urine culture has been sent, and she is receiving IV antibiotics. I have suggested she undergo cystoscopy with left ureteral stent insertion for relief of obstruction. This showed result in improved renal function, and should also be beneficial in eradicating her UTI. The rationale for the procedure was reviewed with her in detail, as were potential risks which include anesthesia, bleeding, infection, ureteral injury, and inability to successfully place a stent. The possible need for nephrostomy tube placement was discussed. She understands that she will require a secondary procedure in 2 -4 weeks (ureteroscopy with laser lithotripsy at the time of stent removal). I intended to perform this procedure this evening, but she has not been nothing by mouth and I do not believe that the risk of performing surgery with anesthesia in a patient who has not been nothing by mouth is warranted given her overall stable condition. The procedure has been scheduled to be performed tomorrow morning. Time with Patient: Greater than 30
[2018-01-20 23:53] LABS: Amphetamine Screen,Urine Detected (NotDetected); Barbiturate Screen,Urine Not Detected (NotDetected); Benzodiazepines Screen,Urine Not Detected (NotDetected); Cocaine Screen,Urine Not Detected (NotDetected); Methadone Screen, Urine Not Detected (NotDetected); Opiate Screen,Urine Detected (NotDetected); Oxycodone Screen, Urine Not Detected (NotDetected); Phencyclidine Screen,Urine Not Detected (NotDetected); Tricyclic Antidepressant,Urine Not Detected (NotDetected); Urn Cannabinoid Scrn Not Detected (NotDetected)
[2018-01-21] MEDS: MORPHINE SULFATE 4 MG/ML SYRINGE IV PRN ×4 (00:07→17:39)
[2018-01-21] MEDS: HYDROcodone/APAP 5-325MG 1 EACH TAB PO PRN ×3 (03:20→20:02)
[2018-01-21 04:49] LABS: Hepatitis B Core IgM Non-Reactive (Non-Reactive)
[2018-01-21 07:15] LABS: Reticulocyte % 1.8 % (0.5-2.0)
[2018-01-21 07:27] LABS: Anisocytosis Slight; Basophils % (A) 0 %; Eosinophils # (A) 0.1 k/uL (0-0.7); Eosinophils % (A) 1 %; HCT 25.7 % (34.0-46.0); Hypochromasia Marked; Lymphocytes # (A) 1.2 k/uL (1.0-4.8); Lymphocytes % (A) 8 %; MCH 30.5 pg (25.0-35.0); MCHC 30.4 g/dL (31.0-37.0); MCV 100.4 fL (80.0-100.0); Macrocytosis Moderate; Mean Platelet Volume 7.5; Monocytes # (A) 0.3 k/uL (0-1.0); Monocytes % (A) 2 %; Neutrophils # (A) 12.6 k/uL (1.3-7.7); Neutrophils % (A) 88 %; Platelet Count 400 k/uL (150-450); Poikilocytosis Moderate; RBC 2.56 m/uL (3.80-5.40); RDW 18.7 % (11.5-15.5); WBC 14.4 k/uL (3.8-10.6)
[2018-01-21 07:35] LABS: HGB 7.8 gm/dL (11.4-16.0)
[2018-01-21 07:38] LABS: Albumin 2.6 g/dL (3.5-5.0); Calcium 9.9 mg/dL (8.4-10.2); Potassium 3.5 mmol/L (3.5-5.1); Total Bilirubin 1.1 mg/dL (0.2-1.3); Total Protein 6.1 g/dL (6.3-8.2)
[2018-01-21] MEDS: SODIUM CHLORIDE 0.9% 1,000 ML IV SCH (08:06)
[2018-01-21] MEDS ORDERED: DAPSONE 25 MG TAB PO SCH (09:00)
[2018-01-21] MEDS ORDERED: IV FLUID CONTINUATION 1,000 ML IV ONE (10:12)
[2018-01-21] MEDS ORDERED: KETAMINE 10 MG/ML 20 ML VIAL ONE (10:16)
[2018-01-21] MEDS ORDERED: MIDAZOLAM 2 MG/2 ML VIAL ONE (10:16)
[2018-01-21] MEDS ORDERED: LIDOCAINE 1% INJ 10MG/ML (20 ML MDV) ONE (10:16)
[2018-01-21] MEDS ORDERED: PROPOFOL 10 MG/ML 20 ML VIAL IV ONE (10:16)
[2018-01-21] MEDS ORDERED: fentaNYL (PF) 50 MCG/ML 2 ML AMP ONE (10:16)
--- NOTE | 2018-01-21 11:00 | P.OP ---
Date of Procedure: 01/21/18 Preoperative Diagnosis: Left hydronephrosis secondary to left distal ureteral calculus Postoperative Diagnosis: Same Procedure(s) Performed: Cystoscopy, left ureteral stent insertion Anesthesia: MAC Surgeon: Bhavesh Edwards Estimated Blood Loss (ml): 0 IV fluids (ml): 600 Pathology: none sent Condition: stable Disposition: PACU Indications for Procedure: The patient is a 42-year-old white female with a 2 week history of back and abdominal pain. She describes the pain has been predominantly right-sided. She is a vague historian. She denies any prior history of urolithiasis. She has been treated with antibiotics as an outpatient, but states that her symptoms have worsened. She has also been noted to be confused. Evaluation in the emergency room has included a CT scan, which revealed left renal calculi as well as left hydronephrosis due to a 9 mm left distal ureteral calculus. She now comes for stent placement. Operative Findings: Obstructing left distal ureteral calculus. Description of Procedure: The patient was taken to the operating room and placed in the dorsolithotomy position, with legs supported in Gilmer stirrups. The external genitalia was prepped and draped sterilely. The 30 lens was used to introduce the 19-Kittitian Stortz cystoscopic sheath through the urethra and into the bladder under direct vision. The bladder was examined in its entirety. Both ureteral orifices were of normal anatomic location and configuration, and clear urine effluxed from both. No tumors or foreign bodies were seen. A 0.035 inch Glidewire was passed through the cystoscope. The left ureteral orifice was cannulated, and the Glidewire was slowly advanced up to the renal pelvis. A 24 cm, 4.8-Kittitian double-J ureteral stent was placed over the wire. Proper stent positioning was verified fluoroscopically and endoscopically. The bladder was emptied and the cystoscope removed. The patient tolerated the procedure well was taken to the recovery room in stable condition.
--- NOTE | 2018-01-21 11:08 | FL ---
Fluoroscopy History: LEFT URETERAL STENT PLACEMENT 33 SEC FLUORO, 1 IMAGE SCANNED INTO PACS
--- NOTE | 2018-01-21 11:14 | CONS ---
CONSULTATION REASON FOR CONSULT: Renal failure. HISTORY OF PRESENT ILLNESS: Patient is a 42-year-old female who was admitted to the hospital with complaints of pain in her back and in the abdomen. The patient is known to have a kidney stone and a CT scan done yesterday did show a left renal calculi with a 9 mm calculus in the lower left ureter with left-sided hydro ureter. The patient was seen by Urology and she is scheduled for a ureteral stent placement today. There was also enlargement of the lower pole of the right kidney noted. The patient is found to have a urinary tract infection. She is currently maintained on antibiotics. The patient denies any history of weak kidney function. She did admit to use of Motrin prior to admission. Serum creatinine was 2.3 mg/dL on admission. It is down to 2.0 today. Patient is maintained on IV fluids. She was also acidotic. CO2 is improved from 13-15 on the electrolytes. The hemoglobin was 6.0 g/dL. The patient denies any active bleeding prior to admission. PAST MEDICAL HISTORY: Significant for a history of nephrolithiasis. History of dermatitis herpetiformis, reflex sympathetic dystrophy. PAST SURGICAL HISTORY: , hysterectomy, uterine ablation, carpal tunnel surgery. SOCIAL HISTORY: Patient is a former smoker. No history of drug abuse or alcohol abuse. MEDICATIONS: Medications at home prior to admission included [place], Neurontin, Ambien, dapsone, Robaxin, Zantac, Medrol Dosepak. ALLERGIES: INCLUDE LATEX. REVIEW OF SYSTEMS: As per HPI. Other systems negative. EXAMINATION: Patient is currently uncomfortable. She is in pain. She is not in any acute distress. Blood pressure was 141/73, heart rate 105 per minute. She is afebrile. Examination of the heart S1, S2. Examination lungs good air entry bilaterally. Abdomen is soft, there is tenderness noted in the mid abdomen as well as in the flank area, particularly on the left side. Examination of lower extremities shows no significant edema. DIE PRESSER exam is grossly intact. LABS SHOW: Sodium of 133, potassium 3.5, BUN 23, serum creatinine 2.07, and CO2 is 15, hemoglobin at 7.8, white cell count 14.4 g/dL. UA shows small blood, 1+ protein, WBCs more than 182. ASSESSMENT: 1. Acute kidney injury secondary to underlying infection, use of NSAIDs as well as a nephrolithiasis with left hydro ureter. The patient's hemoglobin was significantly low on initial admission with no active bleeding and hematology is on consult. I doubt underlying TTP at this time. 2. Metabolic acidosis, non anion gap secondary to renal failure. We will change IV fluids to IV bicarb. 3. Patient is not hypotensive. 4. Mild hypercalcemia associated with acute kidney injury. Volume contraction currently improved. Check PTH level, vitamin D level, and serum and urine immunofixation. 5. Severe anemia with hemoglobin of 6. The patient has been transfused 1 unit packed RBCs. Hematology is on consult. PLAN: Continue IV fluids. Change IV fluids to IV bicarb. Repeat labs in a.m. Agree with the cystoscopy and ureteral stent placement. Avoid nephrotoxic agents. Follow up on urine cultures. Thank you for this consultation. We will continue to follow the patient with you during her hospitalization. MMODL / IJN: [id number] /
[2018-01-21] MEDS ORDERED: SODIUM CHLORIDE 0.9% 1,000 ML IV ONE ×2 (11:15)
[2018-01-21 11:40] VITALS: BMI 21.6
--- NOTE | 2018-01-21 12:31 | P.CONS ---
History of Present Illness - Reason for Consult Consult date: 01/21/18 Macrocytic anemia - History of Present Illness The patient is a 42-year-old white female with multiple medical problems. 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 the patient had been having some back pain radiating to the left anterior abdomen for at least 2-3 weeks. she was apparently found to have a uti and was placed on antibiotics as an outpatient, without improvement. she continued to have progressive pain and then also developed some confusion. she therefore came into the emergency room. she was found to have obstructing calculus in the left ureter. hemoglobin was found to be 6. last hemoglobin in the emr prior to that was in 2013, when it was 12.2. the patient received transfusions with procrit improvement in hemoglobin. mcv was noted to be mildly elevated in the 100 range. consult was therefore placed for further evaluation and recommendation. At the time of my evaluation the patient was having significant chills and rigors. She stated that she was having difficulty concentrating. She denied any prior history of blood problems other than anemia off and on when she was having her periods. She has not had any menstrual cycle since Novasure treatment, which according to her was few years ago. She denied any history of obvious bleeding Review of Systems Constitutional: Reports chills, Reports fatigue, Reports fever, Reports poor appetite Eyes: denies blurred vision, denies pain Ears: deny: decreased hearing, ear discharge, earache, tinnitus Ears, nose, mouth and throat: Denies headache, Denies sore throat Cardiovascular: Reports dyspnea on exertion Respiratory: Denies cough Gastrointestinal: Reports abdominal pain, Reports nausea Genitourinary: Reports as per HPI, Reports flank pain Menstruation: Reports amenorrhea Musculoskeletal: Reports muscle weakness Integumentary: Reports as per HPI (History of dermatitis herpetiformis maintained on dapsone, in remission) Neurological: Reports change in mentation, Reports weakness Psychiatric: Reports anxiety, Reports confusion Endocrine: Reports fatigue Hematologic/Lymphatic: Reports as per HPI Past Medical History Past Medical History: Skin Disorder Additional Past Medical History / Comment(s): DERMATITIS HERPETIFORMUM; Reflex Sympathic Dystrophy History of Any Multi-Drug Resistant Organisms: None Reported Past Surgical History: Section, Hysterectomy, Uterine Ablation Additional Past Surgical History / Comment(s): carpal tunnel surg Past Anesthesia/Blood Transfusion Reactions: Postoperative Nausea & Vomiting ( PONV) Past Psychological History: ADD/ADHD Smoking Status: Former smoker Past Alcohol Use History: Occasional Past Drug Use History: None Reported Medications and Allergies Home Medications Medication Instructions Recorded Confirmed Type Dapsone 100 mg PO DAILY 01/10/14 01/20/18 History Zolpidem Tartrate [Ambien] 10 mg PO HS 06/19/14 01/20/18 History Albuterol Inhaler [Ventolin Hfa 2 puff INHALATION RT-Q4H PRN 01/20/18 01/20/18 History Inhaler] Dextroamphetamine/Amphetamine 30 mg PO BID 01/20/18 01/20/18 History [Adderall] Gabapentin [Neurontin] 300 mg PO TID PRN 01/20/18 01/20/18 History HYDROcodone/APAP 7.5-325MG [[place] 1 tab PO TID PRN 01/20/18 01/20/18 History 7.5-325] Hydrocortisone Cream 1 applic TOPICAL BID PRN 01/20/18 01/20/18 History [Hydrocortisone 2.5% Cream] Methocarbamol [Robaxin] 500 mg PO Q8H PRN 01/20/18 01/20/18 History Nitrofurantoin Monohyd/M-Cryst 100 mg PO Q12HR 01/20/18 01/20/18 History [Macrobid] Omeprazole 20 mg PO DAILY PRN 01/20/18 01/20/18 History Ranitidine HCl [Zantac] 150 mg PO BID PRN 01/20/18 01/20/18 History SUMAtriptan SUCCINATE [Imitrex] 100 mg PO DAILY PRN 01/20/18 01/20/18 History Triamcinolone 0.1% Ointment 1 applic TOPICAL BID PRN 01/20/18 01/20/18 History [Kenalog 0.1% Ointment] methylPREDNISolone Dose Pack See Taper PO DIRECTED PRN 01/20/18 01/20/18 History [Medrol Dose Pack] Allergies Allergy/AdvReac Type Severity Reaction Status Date / Time latex AdvReac Rash/Hives Verified 01/20/18 14:27 Physical Exam Vitals: Vital Signs Temp Pulse Pulse Pulse Resp BP BP 01/21/18 12:00 126 H 20 01/21/18 11:40 100.4 F H 126 H 20 158/89 01/21/18 11:22 102 H 18 104/67 01/21/18 11:08 100 18 98/54 01/21/18 10:53 97.0 F L 109 H 14 100/54 01/21/18 08:00 102.4 F H 107 H 20 116/78 01/21/18 04:00 105 H 20 01/21/18 03:23 99.7 F H 105 H 20 141/73 01/21/18 00:00 99.3 F 82 20 111/62 01/20/18 23:04 99.5 F 95 18 117/72 01/20/18 21:30 98.9 F 91 91 18 129/62 129/62 01/20/18 21:00 97.9 F 91 18 129/83 01/20/18 20:50 97.7 F 98 18 115/77 01/20/18 20:14 97.7 F 82 18 115/77 01/20/18 18:30 89 18 112/58 01/20/18 18:00 85 18 126/78 01/20/18 17:00 91 18 120/74 01/20/18 16:00 95 18 113/86 01/20/18 15:00 98 18 131/86 01/20/18 14:29 01/20/18 14:10 97.9 F 96 18 131/86 Pulse Ox 01/21/18 12:00 01/21/18 11:40 93 L 01/21/18 11:22 96 01/21/18 11:08 96 01/21/18 10:53 97 01/21/18 08:00 96 01/21/18 04:00 01/21/18 03:23 97 01/21/18 00:00 97 01/20/18 23:04 96 01/20/18 21:30 99 01/20/18 21:00 01/20/18 20:50 99 01/20/18 20:14 100 01/20/18 18:30 85 L 01/20/18 18:00 96 01/20/18 17:00 94 L 01/20/18 16:00 99 01/20/18 15:00 98 01/20/18 14:29 96 01/20/18 14:10 99 Intake and Output 01/20/18 01/21/1801/21/18 22:59 06:59 14:59 Intake Total 240 660 700 Output Total 0 Balance 240 660 700 Intake: IV 700 Intake, IV Titration 350 Amount Sodium Chloride 0.9% 1, 350 000 ml @ 75 mls/hr IV . [id number] [facility] Rx#:[id number] Oral 240 Blood Product 0 310 Rc As-1 Unit 0 310 [id number] Output: Estimated Blood Loss 0 Other: Voiding Method Toilet Toilet # Voids 2 1 Weight 55.2 kg 55.4 kg 55.4 kg - Constitutional General appearance: mild distress (Due to marked rigors) - EENT Eyes: EOMI, PERRLA ENT: hearing grossly normal, normal oropharynx - Neck Neck: lymphadenopathy - Respiratory Respiratory: bilateral: CTA - Cardiovascular Rhythm: regular Heart sounds: normal: S1, S2 - Gastrointestinal General gastrointestinal: normal bowel sounds, soft - Integumentary Integumentary: normal - Neurologic Neurologic: CNII-XII intact - Musculoskeletal Musculoskeletal: generalized weakness, strength equal bilaterally - Psychiatric Psychiatric: A&O x's 3, appropriate affect Results CBC & Chem 7: 01/21/18 05:39 01/21/18 05:39 Labs: Abnormal Lab Results - Last 24 Hours (Table) 01/20/18 01/20/18 01/20/18 Range/Units 15:00 15:03 15:03 WBC 15.3 H (3.8-10.6) k/uL RBC 1.96 L (3.80-5.40) m/uL Hgb 6.0 L* (11.4-16.0) gm/dL Hct 19.7 L* (34.0-46.0) % MCV 100.3 H (80.0-100.0) fL MCHC 30.2 L (31.0-37.0) g/dL RDW 18.5 H (11.5-15.5) % Neutrophils # 12.6 H (1.3-7.7) k/uL INR (<1.2) Sodium (137-145) mmol/L Chloride (98-107) mmol/L Carbon Dioxide (22-30) mmol/L BUN (7-17) mg/dL Creatinine (0.52-1.04) mg/dL Glucose (74-99) mg/dL POC Glucose (mg/dL) (75-99) mg/dL Calcium (8.4-10.2) mg/dL AST (14-36) U/L Alkaline Phosphatase (38-126) U/L Total Creatine Kinase <20 L (30-135) U/L Total Protein (6.3-8.2) g/dL Albumin (3.5-5.0) g/dL Urine Appearance (Clear) Urine Protein (Negative) Urine Blood (Negative) Ur Leukocyte Esterase (Negative) Urine RBC (0-5) /hpf Urine WBC (0-5) /hpf Urine WBC Clumps (None) /hpf Urine Bacteria (None) /hpf Hyaline Casts (0-2) /lpf Urine Mucus (None) /hpf Urine Opiates Screen (NotDetected) Ur Amphetamines Screen (NotDetected) Crossmatch See Detail 01/20/18 01/20/18 01/20/18 Range/Units 15:03 15:03 15:03 WBC (3.8-10.6) k/uL RBC (3.80-5.40) m/uL Hgb (11.4-16.0) gm/dL Hct (34.0-46.0) % MCV (80.0-100.0) fL MCHC (31.0-37.0) g/dL RDW (11.5-15.5) % Neutrophils # (1.3-7.7) k/uL INR 1.2 H (<1.2) Sodium 133 L (137-145) mmol/L Chloride (98-107) mmol/L Carbon Dioxide 13 L (22-30) mmol/L BUN 33 H (7-17) mg/dL Creatinine 2.30 H (0.52-1.04) mg/dL Glucose (74-99) mg/dL POC Glucose (mg/dL) (75-99) mg/dL Calcium 10.7 H (8.4-10.2) mg/dL AST 69 H (14-36) U/L Alkaline Phosphatase 632 H (38-126) U/L Total Creatine Kinase (30-135) U/L Total Protein (6.3-8.2) g/dL Albumin 3.1 L (3.5-5.0) g/dL Urine Appearance (Clear) Urine Protein (Negative) Urine Blood (Negative) Ur Leukocyte Esterase (Negative) Urine RBC (0-5) /hpf Urine WBC (0-5) /hpf Urine WBC Clumps (None) /hpf Urine Bacteria (None) /hpf Hyaline Casts (0-2) /lpf Urine Mucus (None) /hpf Urine Opiates Screen Detected H (NotDetected) Ur Amphetamines Screen Detected H (NotDetected) Crossmatch 01/20/18 01/20/18 01/20/18 Range/Units 15:03 15:29 23:27 WBC (3.8-10.6) k/uL RBC (3.80-5.40) m/uL Hgb (11.4-16.0) gm/dL Hct (34.0-46.0) % MCV (80.0-100.0) fL MCHC (31.0-37.0) g/dL RDW (11.5-15.5) % Neutrophils # (1.3-7.7) k/uL INR (<1.2) Sodium (137-145) mmol/L Chloride (98-107) mmol/L Carbon Dioxide (22-30) mmol/L BUN (7-17) mg/dL Creatinine (0.52-1.04) mg/dL Glucose (74-99) mg/dL POC Glucose (mg/dL) 104 H (75-99) mg/dL Calcium (8.4-10.2) mg/dL AST (14-36) U/L Alkaline Phosphatase (38-126) U/L Total Creatine Kinase (30-135) U/L Total Protein (6.3-8.2) g/dL Albumin (3.5-5.0) g/dL Urine Appearance Cloudy H (Clear) Urine Protein 1+ H (Negative) Urine Blood Small H (Negative) Ur Leukocyte Esterase Large H (Negative) Urine RBC 69 H (0-5) /hpf Urine WBC >182 H (0-5) /hpf Urine WBC Clumps Moderate H (None) /hpf Urine Bacteria Moderate H (None) /hpf Hyaline Casts 19 H (0-2) /lpf Urine Mucus Rare H (None) /hpf Urine Opiates Screen Detected H (NotDetected) Ur Amphetamines Screen Detected H (NotDetected) Crossmatch 01/21/18 01/21/18 Range/Units 05:39 05:39 WBC 14.4 H (3.8-10.6) k/uL RBC 2.56 L (3.80-5.40) m/uL Hgb 7.8 L D (11.4-16.0) gm/dL Hct 25.7 L (34.0-46.0) % MCV 100.4 H (80.0-100.0) fL MCHC 30.4 L (31.0-37.0) g/dL RDW 18.7 H (11.5-15.5) % Neutrophils # 12.6 H (1.3-7.7) k/uL INR (<1.2) Sodium 133 L (137-145) mmol/L Chloride 109 H (98-107) mmol/L Carbon Dioxide 15 L (22-30) mmol/L BUN 23 H (7-17) mg/dL Creatinine 2.07 H (0.52-1.04) mg/dL Glucose 61 L (74-99) mg/dL POC Glucose (mg/dL) (75-99) mg/dL Calcium (8.4-10.2) mg/dL AST (14-36) U/L Alkaline Phosphatase 564 H (38-126) U/L Total Creatine Kinase (30-135) U/L Total Protein 6.1 L (6.3-8.2) g/dL Albumin 2.6 L (3.5-5.0) g/dL Urine Appearance (Clear) Urine Protein (Negative) Urine Blood (Negative) Ur Leukocyte Esterase (Negative) Urine RBC (0-5) /hpf Urine WBC (0-5) /hpf Urine WBC Clumps (None) /hpf Urine Bacteria (None) /hpf Hyaline Casts (0-2) /lpf Urine Mucus (None) /hpf Urine Opiates Screen (NotDetected) Ur Amphetamines Screen (NotDetected) Crossmatch Microbiology - Last 24 Hours (Table) 01/20/18 15:03 Urine Culture - Preliminary Urine,Clean Catch Chest x-ray: report reviewed CT scan - abdomen: report reviewed CT Scan - head: report reviewed CT scan - pelvis: report reviewed Assessment and Plan (1) Anemia Narrative/Plan: The patient presented with severe anemia, with some macrocytosis. She has responded appropriately to blood transfusion. Case was discussed in detail with the admitting service. Given presence of acute renal insufficiency, there was concern for microangiopathic hemolytic process, or other types or hemolysis. - Labs so far indicate no evidence of hemolysis or a microangiopathic process. The patient does not have any schistocytes. Her reticulocyte count, bilirubin, and LDH are all within normal limits. Platelets are also normal. - Hemolysis due to G6PD deficiency also appears to be unlikely, given that the patient has been on dapsone for some years. In addition, as noted hemolysis labs are actually negative. - Therefore at this time the most likely expiration is a hypoproliferative anemia, due to underlying mild marrow suppression from chronic use, exacerbated by acute infection which clinically appears to be arising from the urinary tract. i will therefore hold her dapsone temporarily. Patient will be placed on folic acid. Additional anemia workup will be ordered. In the meantime continue to monitor hemoglobin and treat supportively as needed. Assuming no new abnormalities found on additional workup, I would anticipate normalization as the patient's infection is cleared and she stays off the dapsone Current Visit: Yes Status: Acute Code(s): D64.9 - ANEMIA, UNSPECIFIED SNOMED Code(s): 182605481 (2) Urinary tract infection Narrative/Plan: The clinical presentation is highly suggestive of the same. The patient was presentation did spike significant fever, and was also having severe chills at the time of my evaluation today. She is status post stent placement, and is on antibiotics. Defer to the admitting service and other consultants for continued management Current Visit: Yes Status: Acute Code(s): N39.0 - URINARY TRACT INFECTION, SITE NOT SPECIFIED SNOMED Code(s): 17940149
[2018-01-21] MEDS: DEXTROSE 5% IN WATER 1,000 ML with SODIUM BICARB (1 MEQ/ML) 150 ML IV SCH ×3 (13:38→22:13)
[2018-01-21] MEDS: METOPROLOL TARTRATE 25 MG TAB PO SCH (17:38)
[2018-01-21] MEDS ORDERED: BISACODYL 10 MG SUPP RECTAL STA (19:35)
[2018-01-22] MEDS: HYDROcodone/APAP 5-325MG 1 EACH TAB PO PRN ×2 (02:28→18:32)
[2018-01-22 04:01] LABS: Albumin 2.3 g/dL (3.5-5.0); Calcium 9.1 mg/dL (8.4-10.2); Potassium 2.8 mmol/L (3.5-5.1); Total Bilirubin 1.8 mg/dL (0.2-1.3); Total Protein 5.5 g/dL (6.3-8.2)
[2018-01-22] MEDS: ACETAMINOPHEN TAB 325 MG TAB PO PRN ×2 (04:07→12:45)
[2018-01-22 04:21] LABS: Anisocytosis Slight; Basophils % (A) 0 %; Eosinophils # (A) 0.1 k/uL (0-0.7); Eosinophils % (A) 0 %; Hypochromasia Marked; Lymphocytes # (A) 1.8 k/uL (1.0-4.8); Lymphocytes % (A) 12 %; MCH 30.6 pg (25.0-35.0); MCHC 30.8 g/dL (31.0-37.0); MCV 99.5 fL (80.0-100.0); Macrocytosis Slight; Mean Platelet Volume 7.7; Monocytes # (A) 0.5 k/uL (0-1.0); Monocytes % (A) 3 %; Neutrophils # (A) 12.3 k/uL (1.3-7.7); Neutrophils % (A) 83 %; Platelet Count 350 k/uL (150-450); Poikilocytosis Slight; RBC 1.98 m/uL (3.80-5.40); RDW 18.3 % (11.5-15.5); WBC 14.9 k/uL (3.8-10.6)
[2018-01-22 04:27] LABS: HGB 6.1 gm/dL (11.4-16.0)
[2018-01-22 04:28] LABS: HCT 19.7 % (34.0-46.0)
[2018-01-22] MEDS: DEXTROSE 5% IN WATER 1,000 ML with SODIUM BICARB (1 MEQ/ML) 150 ML IV SCH ×3 (05:49→18:29)
[2018-01-22] MEDS ORDERED: Potassium Replacement Protocol 1 EACH MISC MISCELLANE PRN ×2 (06:49→14:15)
--- NOTE | 2018-01-22 06:49 | PN ---
PROGRESS NOTE DATE OF SERVICE: 01/21/2018 This 42-year-old woman was admitted with multiple complex medical issues, had UTI with possible sepsis. The patient also had some change in mental status. The patient underwent cystoscopy, left ureteral stent insertion for left hydronephrosis secondary to left distal ureteral calculus by Dr. Edwards. Patient was also seen by Dr. Yanez and Dr. Edwards who recommended continued monitoring. According to Dr. Yanez, there is no evidence hemolysis or microangiopathic cause process at this time. Hypoproliferative anemia due to underlying mild bone marrow suppression of chronic use was exacerbated by acute infection was noted at this time. PAST MEDICAL HISTORY: Reviewed. REVIEW OF SYSTEMS: CARDIOVASCULAR SYSTEM: No angina. RESPIRATORY SYSTEM: As mentioned. GI: As mentioned. : As mentioned. NERVOUS SYSTEM: No numbness or weakness. CURRENT MEDICATIONS: Current medications are reviewed and include: 1. [place] 5 mg q.4h p.r.n. 2. Ventolin q.i.d., p.r.n. 3. Rocephin 1 gram daily. 4. Dapsone, on hold. 5. Dextrose . 6. Lopressor. 7. Morphine sulfate. 8. Narcan. 9. Zofran. 10.Protonix. 11.Imitrex. 12.Kenalog. PHYSICAL EXAM: Patient is alert and oriented x3. The pulse is 117, blood pressure is 129/58, respiration 20, temperature 100.2, pulse ox 90% on room air. HEENT: Conjunctivae normal. Oral mucosa moist. Neck is no jugular venous distention. No carotid bruit. No lymph node enlargement. CARDIOVASCULAR: S1 and S2 muffled. RESPIRATORY: Breath sounds diminished at the bases. Bilateral scattered rhonchi . ABDOMEN: Soft, nontender. No mass palpable. LEGS: No edema, no swelling. NERVOUS SYSTEM: No focal deficits. LABS: Labs are at this time show WBC 14.4, hemoglobin 7.8 after transfusion. Sodium 133. Retic count is only 1.8. Albumin is 2.1. Serum ammonia is only 17. Alkaline phosphatase is 564. Creatinine is 2.07, slightly improved. Urine drug screen showed only amphetamines. Hepatitis panel is negative. ASSESSMENT: 1. Acute urinary tract infection with sepsis present on admission. 2. Status post cystoscopy, left ureteral stent insertion for left hydronephrosis secondary to left distal ureteral calculus. 3. Change in mental status possible acute metabolic encephalopathy. 4. Anemia macrocytic possibly hypoproliferative per Hematology/Oncology. 5. Increased WBC. 6. Increased creatinine with possible acute renal failure possibly prerenal. 7. Increased AST. 8. History of dermatitis herpetiformis. 9. History of RSD. 10.History of hysterectomy. 11.History of carpal tunnel syndrome. 12.History of attention deficit hyperactivity disorder. 13.Remote history of nicotine dependence. RECOMMENDATIONS AND DISCUSSION: In this 42-year-old woman who presented with multiple complex medical issues, will monitor the patient closely. Continue the current medications. Continue symptomatic treatment. Will follow the cultures. Otherwise, we will continue the IV fluids. Multiple sap consultant notes are appreciated. See orders for further details. Further recommendations to follow. MMODL / IJN: [id number] / MTDD
[2018-01-22] MEDS ORDERED: SODIUM CHLORIDE 0.9% 500 ML 500 ML IV ONE ×2 (07:20→15:40)
[2018-01-22] MEDS: METOPROLOL TARTRATE 25 MG TAB PO SCH ×2 (07:31→07:50)
[2018-01-22] MEDS: POTASSIUM CHLORIDE ER 20 MEQ TAB.ER PO SCH ×3 (07:31→15:43)
[2018-01-22] MEDS: MORPHINE SULFATE 4 MG/ML SYRINGE IV PRN ×3 (07:47→15:47)
--- NOTE | 2018-01-22 08:21 | CONS ---
CONSULTATION DATE OF CONSULTATION: 01/21/2018 CHIEF COMPLAINT: Altered mental status. HISTORY OF PRESENT ILLNESS: The patient is a 42-year-old, female, who is being evaluated by the neurology service per the request of Dr. Yang for altered mental status. The patient was brought into [facility] Emergency Room with the complaint of increasing abdominal pain and some drowsiness and confusion. A CT scan of the brain was done, which was normal. Her CT scan of the abdomen and pelvis showed evidence of left hydronephrosis due to renal stone seen in the ureter on the left side. There was also mention of a possible renal mass on the right side. Urology was consulted and she did have an emergency ureter stent placement. Her CBC showed leukocytosis at 15.3, and severe anemia with a hemoglobin of 6 and hematocrit of 19. Her comprehensive metabolic profile showed renal insufficiency with a BUN of 33 and creatinine of 2.3. Her calcium was slightly elevated at 10.7 and AST was elevated at 69 with an alkaline phosphatase at 632. Her urine drug screen was positive for opiates and amphetamines. The patient is on hydrocodone and Adderall at home. Her cardiac enzymes were negative. Her urinalysis showed greater than 182 WBCs with large leukocyte esterase and negative nitrites. The patient has been started on antibiotics and IV hydration. At the time of my evaluation, she is sitting up in her bed and appears to be in no acute distress. She denies any neurological complaints and appears to be at her baseline. She is still complaining of abdominal pain. Nephrology and Urology are following. Hematology has been consulted regarding the severity of her anemia. PAST MEDICAL HISTORY: Dermatitis herpetiformis, reflex sympathetic dystrophy, chronic pain syndrome, history of and hysterectomy, history of nephrolithiasis, gastroesophageal reflux disease, chronic insomnia, chronic pain syndrome, attention deficit disorder, asthma. SOCIAL HISTORY: The patient is a former smoker. She denies any drug use. She occasionally drinks alcohol. FAMILY HISTORY: Noncontributory. HOME MEDICATIONS: Reviewed in the chart. ALLERGIES: LATEX. REVIEW OF SYSTEM: As mentioned above and otherwise negative. PHYSICAL EXAM: Vital signs show a temperature of 97, pulse 102, respiration 18, blood pressure 104/67. GENERAL APPEARANCE: The patient is a well-developed female, who appears to be in no acute distress. HEENT: Normocephalic, atraumatic, no facial asymmetry is seen. NECK: Supple with no masses felt. CARDIOVASCULAR: Regular rate and rhythm. Extremities showed no edema or clubbing. NEUROLOGICAL EXAM: The patient is awake and oriented x3. Speech and language are normal. No lateralizing weakness is seen. Sensory exam showed normal light touch sensation in all 4 extremities. No pronator drift is seen. No tremors or seizure-like activity is noticed. No facial asymmetry is seen on cranial nerve testing. IMPRESSION: 1. Altered mental status, resolved. 2. Multifactorial encephalopathy. 3. Acute urinary tract infection. 4. Renal insufficiency. RECOMMENDATION: The patient's altered mental status was likely due to metabolic and infectious encephalopathy given her renal status and urinary tract infection. She did undergo a stent placement by Urology and Nephrology is also following the patient. Continue antibiotics for her urinary tract infection. An EEG has been ordered. Hematology has been consulted regarding her severe anemia. Her CT scan of the pelvis also showed possible renal mass on the right side. I do recommend further workup regarding this. Continue neuro checks. I will continue to follow with you. Further recommendations to follow. Thank you for allowing me to participate in the care of your patient. If you have any questions, please feel free to contact me. MMODL / IJN: [id number] /
--- NOTE | 2018-01-22 11:43 | CONS ---
CONSULTATION DATE OF SERVICE: 01/21/2018. REASON FOR CONSULTATION: Urinary tract infection. HISTORY OF PRESENT ILLNESS: The patient is a 42-year-old female presenting to the ER at [facility] with chief complaint of confusion and mental status changes with headache and dizziness. The patient had been complaining of dysuria and some frequency but no hematuria. The patient denies significant pain, nausea but no vomiting. With these symptoms, the patient was evaluated by the ER physician. On arrival to the ER, the patient has been afebrile. However, the patient did spike a fever of 102.4 degrees Fahrenheit this morning. The patient further workup did include an elevated white count and hence the urine was significantly positive with moderate leukocyte esterases and many WBC. Hepatitis panel was negative and the patient did have elevated BUN and creatinine. The patient did have abdominal and pelvis CT completed on presentation, which did show left renal calculi and obstructing calculus in the lower left ureter with hydronephrosis. Subsequently has been evaluated by Urology and did have cystoscopy with left ureteral stent insertion. The patient has been treated with Rocephin. Infectious Disease was consulted for further recommendation regarding antibiotic therapy. The patient urine cultures currently pending but unfortunately no blood culture has been obtained. REVIEW OF SYSTEMS: Constitutional: Positive for weakness along with fever. Eyes: No complaint. ENT no complaint. Respiratory no complaint. Cardiovascular no complaint. Genitourinary as per HPI. GASTROINTESTINAL: As per HPI. Musculoskeletal no complaint. Integumentary no complaint. Psychological no complaint. Endocrine no complaint. Neurologic no complaint. PAST MEDICAL HISTORY: urinary tract infection. PAST SURGICAL HISTORY: , hysterectomy, uterine ablation, carpal tunnel surgery. SOCIAL HISTORY: Remote history of smoking. Occasionally drinks. No drug use. FAMILY HISTORY: No pertinent findings noticed. ALLERGIES: LATEX. MEDICATIONS: The patient is on Imitrex, Protonix, Zofran, Narcan, morphine sulfate, Lopressor, Rocephin 1 g q.12 hours and [place]. EXAMINATION: Blood pressure 91/45 with a pulse of 79, temperature of 99.8. She is 94% on room air. General description is a middle aged female lying in bed in no distress. No tachypnea or accessory muscles of respiration use. HEENT: Shows pallor. No scleral icterus. Oral mucosa membranes are dry. No pharyngeal erythema or thrush. NECK: Trachea central. No thyromegaly. Lungs unlabored breathing. Clear to auscultation anteriorly. No wheeze or crackles. Heart S1, S2 regular rate and rhythm. No tenderness. No guarding. No rigidity. Extremities: No edema of the feet. Skin examination: No rash or mass palpable. Neurological: Patient is awake, alert, oriented x3. Mood and affect normal. LABS: Hemoglobin 7.8 with white count 14.4, BUN of 23, creatinine 2.07. Electrolytes have been normal. Urine was positive. Blood culture currently pending. DIAGNOSTIC IMPRESSION AND PLAN: Patient with sepsis in a patient did have a fever and elevated white count. Source is likely complicated left-sided pyelonephritis with obstructive stone, status post cystoscopy with ureteral stent placement, likely from enteric gram-negative pathogen. PLAN: 1. We will change Rocephin to 2 g IV piggyback daily. 2. IV fluids. 3. Depending upon the clinical response as well as cultures, we will adjust medication further if needed. Thank you for this consultation, we will follow this patient along with you. MMODL / IJN: [id number] /
[2018-01-22] MEDS ORDERED: PIPERACILLIN-TAZOBACTAM 3.375 GM in SODIUM CHLORIDE 0.9% 100 ML IVPB SCH (12:00)
[2018-01-22 12:47] LABS: Appearance,Urine Cloudy (Clear); Bacteria,Urine Rare /hpf; Bilirubin,Urine Negative (Negative); Blood,Urine Small (Negative); Color,Urine Yellow; Glucose,Urine (UA) Negative (Negative); Ketones,Urine Negative (Negative); Leukocyte Esterase,Urine Large (Negative); Nitrite,Urine Negative (Negative); PH, Urine 6.5 (5.0-8.0); Protein,Urine 2+ (Negative); RBC,Urine 28 /hpf (0-5); Specific Gravity,Urine 1.011 (1.001-1.035); Squamous Epithelial Cell,Urine <1 /hpf (0-4); Urobilinogen,Urine <2.0 mg/dL (<2.0)
[2018-01-22 13:00] LABS: Protein, Total 5.6 g/dL (6.2-8.2)
--- NOTE | 2018-01-22 13:04 | PN ---
PROGRESS NOTE The patient is seen for followup for acute kidney injury. She was admitted to the hospital with complaints of abdominal pain, fever, and evidence of urinary tract infection with evidence of left hydronephrosis on CT scan. The patient is status post cystoscopy and left ureteral stent placement. Her urine culture came back negative. However, I think the patient had been on antibiotics prior to admission. She was also severely anemic with hemoglobin of 6 at the time of admission, patient has been transfused 1 unit packed RBCs. She is being followed by hematology. There is no evidence of hemolysis. Platelet count is not significantly low and therefore TTP is not being strongly considered at this time. Renal function is improved with IV fluids with serum creatinine down to 1.7 from 2.3 on initial admission. PHYSICAL EXAMINATION: This morning, blood pressure is 90/55, heart rate 67 per minute. Patient is afebrile. Examination of the heart S1, S2. Examination of the lungs bilateral breath sounds are heard. ABDOMEN: Soft with tenderness noted in the mid abdomen. Examination of the lower extremities shows no significant edema. LAB: Show sodium 136, potassium 2.8, chloride 105, BUN 19, serum creatinine 1.7, hemoglobin 6.1 g/dL. ASSESSMENT: 1. Acute kidney injury secondary to severe urinary tract infection associated with left ureteral stone and hydronephrosis. Urine culture came back negative. However, there was significant activity noted in the urine. I will send out urine for eosinophils and also other baseline serologies. There was initially concern for TTP. Hematology is on the case and at this time, there is no evidence of hemolysis. 2. Hypokalemia, currently being replaced. 3. Left ureteral stone status post cystoscopy and left ureteral stent placement. 4. Anemia, being followed by Hematology. No evidence of active bleeding noted at this time. PLAN: Continue with IV fluids. Replace potassium aggressively. Check baseline serologies. Check urine for eosinophils. MMODL / IJN: [id number] /
[2018-01-22 13:13] LABS: Iron Saturation 11.69 (12.00-45.00)
[2018-01-22 14:01] VITALS: RESP 16
--- NOTE | 2018-01-22 15:09 | P.PN ---
Progress Note - Text Progress Note Date: 01/22/18 Ms. Gillette was febrile earlier this afternoon. She denies dysuria and hematuria, though she describes her urine is being dark in color. Her creatinine level has improved somewhat each day and was 1.71 today. Her leukocytosis persists. The urine culture was negative. She is urologically stable. I explained to her that a ureteral stent should remain in place no longer than 3 months, and that I intend to perform cystoscopy, left ureteral stent removal, left ureteroscopy with Holmium laser lithotripsy in several weeks electively as an outpatient. However, she has multiple comorbid conditions for which she is being evaluated. She requires no further urologic evaluation or treatment at this time.
--- NOTE | 2018-01-22 15:26 | P.PN ---
Subjective Progress Note Date: 01/22/18 Principal diagnosis: Altered Mental Status Neurology is following on a2-year-old female for altered mental status. Patient was brought to the emergency room with a complaint of increasing abdominal pain, drowsiness and confusion. CT of the brain showed no acute process and no abnormality. CT of the abdomen and pelvis showed evidence of left hydronephrosis due to renal stone. Findings also mentioned possible renal mass on the right side. Urology was consulted and did have emergency ureter stent placed. Patient is known to be on hydrocodone and Adderall at home. Cardiac enzymes were negative. Urinalysis showed greater than 182 WBCs with large leukocyte esterase and negative nitrites. Patient has been started on antibiotics and IV hydration. On contact, patient was alert and oriented 3, resting in bed, no acute distress. Objective - Vital Signs Vital signs: Vital Signs Temp 99.2 F 01/22/18 15:04 Pulse 80 01/22/18 15:04 Resp 16 01/22/18 15:04 BP 87/47 01/22/18 15:04 Pulse Ox 99 01/22/18 15:04 Intake & Output 01/21/18 01/22/18 01/22/18 18:59 06:59 18:59 Intake Total 820 1850 1770 Output Total 0 Balance 820 1850 1770 Weight 55.4 kg 57 kg Intake: IV 700 Intake, IV Titration 1550 950 Amount Dextrose 5% in Water 1, 1550 300 000 ml @ 150 mls/hr IV . Q7H40M [place] with Sodium Bicarb (1 Meq/ml) 150 ml Rx#:[id number] Piperacillin-Tazobactam 3 100 .375 gm In Sodium Chloride 0.9% 100 ml @ 25 mls/hr IVPB Q8H [facility] Rx#: [id number] Sodium Chloride 0.9% 500 500 ml 500 ml @ 999 mls/hr IV .Q31M ONE Rx#:[id number] cefTRIAXone 1,000 mg In 50 Sodium Chloride 0.9% 50 ml @ 100 mls/hr IVPB Q12HR [facility] Rx#:[id number] Oral 120 300 200 Blood Product 620 Rc As-1 Unit 310 [id number] Output: Estimated Blood Loss 0 Other: Voiding Method Toilet Toilet Toilet # Voids 1 3 3 - Exam General appearance: Alert & oriented x3, no apparent distress. Head: Atraumatic, normocephalic, normal inspection Eyes: PERRLA, EOMI. Absent scleral icterus, conjunctival injection, nystagmus, periorbital swelling. Ear, nose and throat: Normal exam, mucous membranes moist Neck: Normal inspection, absent tenderness, lymphadenopathy. Respiratory: No increased work of breathing Cardiovascular: Regular rate, rhythm GI/abdominal: No guarding, no rigidity Extremities: moves all extremities Neurological: cranial nerves II through XII intact no lateralizing weakness no seizure activity noted on physical exam no pronator drift and no nystagmus. Strength: full in all 4 extremities Sensation: Left lower extremity: normal Right lower extremity: normal Left upper extremity: normal Right upper extremity:normal Psychological: Mood and Affect appropriate for setting - Labs CBC & Chem 7: 01/22/18 03:28 01/22/18 13:23 Labs: Abnormal Lab Results - Last 24 Hours (Table) 01/20/18 01/21/18 01/21/18 Range/Units 15:00 05:39 05:39 WBC (3.8-10.6) k/uL RBC (3.80-5.40) m/uL Hgb (11.4-16.0) gm/dL Hct (34.0-46.0) % MCHC (31.0-37.0) g/dL RDW (11.5-15.5) % Neutrophils # (1.3-7.7) k/uL Haptoglobin 383.0 H (31.2-198.0) mg/dL Sodium (137-145) mmol/L Potassium (3.5-5.1) mmol/L Carbon Dioxide (22-30) mmol/L BUN (7-17) mg/dL Creatinine (0.52-1.04) mg/dL Glucose (74-99) mg/dL Iron (50-170) ug/dL Iron Saturation (12.00-45.00) Ferritin (10.0-291.0) ng/mL Total Bilirubin (0.2-1.3) mg/dL AST (14-36) U/L Alkaline Phosphatase (38-126) U/L Total Protein (6.3-8.2) g/dL Total Protein (PEP) 5.6 L (6.2-8.2) g/dL Albumin (3.5-5.0) g/dL Vitamin B12 2632.0 H (200.0-944.0) pg/mL Urine Appearance (Clear) Urine Protein (Negative) Urine Blood (Negative) Ur Leukocyte Esterase (Negative) Urine RBC (0-5) /hpf Urine WBC (0-5) /hpf Urine Bacteria (None) /hpf Free [place] LC, Quant 8.38 H (0.33-1.94) mg/dL Free [place]ambda LC, Quant 7.94 H (0.57-2.63) mg/dL Crossmatch See Detail 01/21/18 01/22/18 01/22/18 Range/Units 05:39 03:28 03:28 WBC 14.9 H (3.8-10.6) k/uL RBC 1.98 L (3.80-5.40) m/uL Hgb 6.1 L* D (11.4-16.0) gm/dL Hct 19.7 L* (34.0-46.0) % MCHC 30.8 L (31.0-37.0) g/dL RDW 18.3 H (11.5-15.5) % Neutrophils # 12.3 H (1.3-7.7) k/uL Haptoglobin (31.2-198.0) mg/dL Sodium 136 L (137-145) mmol/L Potassium 2.8 L (3.5-5.1) mmol/L Carbon Dioxide 21 L (22-30) mmol/L BUN 19 H (7-17) mg/dL Creatinine 1.71 H (0.52-1.04) mg/dL Glucose 109 H (74-99) mg/dL Iron 27 L (50-170) ug/dL Iron Saturation 11.69 L (12.00-45.00) Ferritin 1314.0 H (10.0-291.0) ng/mL Total Bilirubin 1.8 H (0.2-1.3) mg/dL AST 97 H (14-36) U/L Alkaline Phosphatase 611 H (38-126) U/L Total Protein 5.5 L (6.3-8.2) g/dL Total Protein (PEP) (6.2-8.2) g/dL Albumin 2.3 L (3.5-5.0) g/dL Vitamin B12 (200.0-944.0) pg/mL Urine Appearance (Clear) Urine Protein (Negative) Urine Blood (Negative) Ur Leukocyte Esterase (Negative) Urine RBC (0-5) /hpf Urine WBC (0-5) /hpf Urine Bacteria (None) /hpf Free [place] LC, Quant (0.33-1.94) mg/dL Free Lambda LC, Quant (0.57-2.63) mg/dL Crossmatch 01/22/18 01/22/18 Range/Units 12:30 13:23 WBC (3.8-10.6) k/uL RBC (3.80-5.40) m/uL Hgb (11.4-16.0) gm/dL Hct (34.0-46.0) % MCHC (31.0-37.0) g/dL RDW (11.5-15.5) % Neutrophils # (1.3-7.7) k/uL Haptoglobin (31.2-198.0) mg/dL Sodium (137-145) mmol/L Potassium 3.3 L (3.5-5.1) mmol/L Carbon Dioxide (22-30) mmol/L BUN (7-17) mg/dL Creatinine (0.52-1.04) mg/dL Glucose (74-99) mg/dL Iron (50-170) ug/dL Iron Saturation (12.00-45.00) Ferritin (10.0-291.0) ng/mL Total Bilirubin (0.2-1.3) mg/dL AST (14-36) U/L Alkaline Phosphatase (38-126) U/L Total Protein (6.3-8.2) g/dL Total Protein (PEP) (6.2-8.2) g/dL Albumin (3.5-5.0) g/dL Vitamin B12 (200.0-944.0) pg/mL Urine Appearance Cloudy H (Clear) Urine Protein 2+ H (Negative) Urine Blood Small H (Negative) Ur Leukocyte Esterase Large H (Negative) Urine RBC 28 H (0-5) /hpf Urine WBC 147 H (0-5) /hpf Urine Bacteria Rare H (None) /hpf Free [place] LC, Quant (0.33-1.94) mg/dL Free Lambda LC, Quant (0.57-2.63) mg/dL Crossmatch Microbiology - Last 24 Hours (Table) 01/20/18 15:03 Urine Culture - Final Urine,Clean Catch Assessment and Plan (1) Encephalopathy Current Visit: Yes Status: Acute Code(s): G93.40 - ENCEPHALOPATHY, UNSPECIFIED SNOMED Code(s): 31766300 (2) Altered mental status Current Visit: Yes Status: Acute Code(s): R41.82 - ALTERED MENTAL STATUS, UNSPECIFIED SNOMED Code(s): 421284778 (3) Acute renal failure Current Visit: Yes Status: Acute Code(s): N17.9 - ACUTE KIDNEY FAILURE, UNSPECIFIED SNOMED Code(s): 57699162 (4) Hydronephrosis with renal and ureteral calculus obstruction Current Visit: Yes Status: Acute Code(s): N13.2 - HYDRONEPHROSIS WITH RENAL AND URETERAL CALCULOUS OBSTRUCTION SNOMED Code(s): 667748101 (5) Urinary tract infection Current Visit: Yes Status: Acute Code(s): N39.0 - URINARY TRACT INFECTION, SITE NOT SPECIFIED SNOMED Code(s): 02169521 Plan: At this time, the patient's altered mental status was likely due to metabolic and infectious encephalopathy given her renal status and urinary tract infection. Patient does have EEG ordered. Once EEG is taken, patient can be cleared from a neurological standpoint for discharge. Status: Neurology will clear the patient for discharge from a neurological standpoint once EEG is taken as noted above. Patient to follow-up in the office within 14 days of discharge. I have discussed the plan of care with the physician prior to implementation and he agrees with the plan as implemented.
--- NOTE | 2018-01-22 16:00 | P.CNPUL ---
History of Present Illness Consult date: 01/22/18 Reason for consult: other (Hypertension, possible sepsis.) Chief complaint: Left flank pain History of present illness: This is a 42-year-old female with history of dermatitis herpetiformis, presented with 2 week history of back and flank pain. Pain was mostly left- sided, she had no previous history of nephrolithiasis. Patient has been treated on outpatient basis with oral antibiotics, however her symptoms have become worse. She then developed symptoms of confusion and encephalopathy. Patient was seen in the ER, and she had a CT scan of the abdomen and pelvis, and she was found to have left renal calculi and left hydronephrosis due to a 9 mm calculus in the left ureter. Her labs on admission showed leukocytosis, low hemoglobin of 6.0, acute kidney injury with a BUN of 33 and creatinine of 2.30, her bicarb was low at 13, and her urinalysis showed evidence of moderate bacteriuria, pyuria, and large urine leukocyte esterase. Since admission, the patient was seen by many consultants, including urology were and a ureteral stent was placed, she was also seen by nephrology, neurology, and by infectious disease as well as internal medicine who admitted the patient. Today I was asked to see the patient because patient was noted to have hypotension, however she responded to fluid boluses, and she received a unit of packed RBCs for low hemoglobin this morning. During my evaluation, patient was noted to have borderline blood pressure, however her mean was above 65. Patient's encephalopathy has significantly improved according to the nurses taking care of her, blood pressure improved after a blood transfusion and after to fluid boluses given by the admitting physician. Her antibiotics were changed from Rocephin to Zosyn by infectious disease. I did evaluate the patient, and I felt that if her pressure drifts again, she needs to be transferred to the ICU. The nurse was taking care of the patient was made aware to let me know if she continues to have any hypotensive episodes. In the meantime patient was given another fluid bolus, and I recommended close monitoring of the blood pressure. Patient herself denies any headache, no blurred vision, no dizziness, denies any shortness of breath no cough no wheezing, no nausea no vomiting no abdominal pain no melena no hematemesis is no dysuria and no frequency no urgency. She does have some left flank pain. Review of Systems 14 point review of systems were obtained, please refer to pertinent positives in HPI, otherwise remaining systems are negative Past Medical History Past Medical History: Skin Disorder Additional Past Medical History / Comment(s): DERMATITIS HERPETIFORMUM; Reflex Sympathic Dystrophy History of Any Multi-Drug Resistant Organisms: None Reported Past Surgical History: Section, Hysterectomy, Uterine Ablation Additional Past Surgical History / Comment(s): carpal tunnel surg Past Anesthesia/Blood Transfusion Reactions: Postoperative Nausea & Vomiting ( PONV) Past Psychological History: ADD/ADHD Smoking Status: Former smoker Past Alcohol Use History: Occasional Past Drug Use History: None Reported Medications and Allergies Home Medications Medication Instructions Recorded Confirmed Type Dapsone 100 mg PO DAILY 01/10/14 01/20/18 History Zolpidem Tartrate [Ambien] 10 mg PO HS 06/19/14 01/20/18 History Albuterol Inhaler [Ventolin Hfa 2 puff INHALATION RT-Q4H PRN 01/20/18 01/20/18 History Inhaler] Dextroamphetamine/Amphetamine 30 mg PO BID 01/20/18 01/20/18 History [Adderall] Gabapentin [Neurontin] 300 mg PO TID PRN 01/20/18 01/20/18 History HYDROcodone/APAP 7.5-325MG [Roy 1 tab PO TID PRN 01/20/18 01/20/18 History 7.5-325] Hydrocortisone Cream 1 applic TOPICAL BID PRN 01/20/18 01/20/18 History [Hydrocortisone 2.5% Cream] Methocarbamol [Robaxin] 500 mg PO Q8H PRN 01/20/18 01/20/18 History Nitrofurantoin Monohyd/M-Cryst 100 mg PO Q12HR 01/20/18 01/20/18 History [Macrobid] Omeprazole 20 mg PO DAILY PRN 01/20/18 01/20/18 History Ranitidine HCl [Zantac] 150 mg PO BID PRN 01/20/18 01/20/18 History SUMAtriptan SUCCINATE [Imitrex] 100 mg PO DAILY PRN 01/20/18 01/20/18 History Triamcinolone 0.1% Ointment 1 applic TOPICAL BID PRN 01/20/18 01/20/18 History [Kenalog 0.1% Ointment] methylPREDNISolone Dose Pack See Taper PO DIRECTED PRN 01/20/18 01/20/18 History [Medrol Dose Pack] Allergies Allergy/AdvReac Type Severity Reaction Status Date / Time latex AdvReac Rash/Hives Verified 01/20/18 14:27 Physical Exam Vitals: Vital Signs Temp Pulse Pulse Pulse Resp BP BP 01/22/18 15:41 70 16 89/54 01/22/18 15:04 99.2 F 80 16 87/47 01/22/18 15:03 99.2 F 80 16 83/47 01/22/18 14:40 99.4 F 80 16 91/51 01/22/18 14:39 99.4 F 80 16 91/51 01/22/18 14:31 99.4 F 84 16 91/51 01/22/18 14:02 99.8 F H 79 16 83/41 01/22/18 14:00 99.5 F 83 16 86/52 01/22/18 13:29 101.2 F H 89 18 96/60 01/22/18 12:59 98.8 F 86 16 93/60 01/22/18 12:49 98.5 F 88 18 94/66 01/22/18 12:48 99.4 F 100 16 90/51 01/22/18 07:35 98.7 F 67 18 90/55 01/22/18 05:28 73 01/22/18 04:48 99.2 F 84 20 94/54 01/22/18 04:06 81 01/22/18 04:02 99.5 F 94/50 01/22/18 03:02 100.6 F H 102 H 01/22/18 02:29 102.8 F H 102 H 18 96/53 01/22/18 02:17 102.8 F H 105 H 18 93/53 01/22/18 00:00 79 18 01/21/18 22:15 99.8 F H 79 18 91/45 01/21/18 16:00 100.2 F H 117 H 20 129/58 Pulse Ox 01/22/18 15:41 99 01/22/18 15:04 99 01/22/18 15:03 99 01/22/18 14:40 96 01/22/18 14:39 96 01/22/18 14:31 96 01/22/18 14:02 96 01/22/18 14:00 96 01/22/18 13:29 96 01/22/18 12:59 98 01/22/18 12:49 99 01/22/18 12:48 01/22/18 07:35 98 01/22/18 05:28 01/22/18 04:48 93 L 01/22/18 04:06 01/22/18 04:02 01/22/18 03:02 01/22/18 02:29 95 01/22/18 02:17 89 L 01/22/18 00:00 01/21/18 22:15 94 L 01/21/18 16:00 90 L Intake and Output 01/22/18 01/22/18 01/22/18 06:59 14:59 22:59 Intake Total 1200 1460 310 Balance 1200 1460 310 Intake: Intake, IV Titration 1200 950 Amount Dextrose 5% in Water 1, 1200 300 000 ml @ 150 mls/hr IV . Q7H40M [place] with Sodium Bicarb (1 Meq/ml) 150 ml Rx#:[id number] Piperacillin-Tazobactam 3 100 .375 gm In Sodium Chloride 0.9% 100 ml @ 25 mls/hr IVPB Q8H [facility] Rx#: [id number] Sodium Chloride 0.9% 500 500 ml 500 ml @ 999 mls/hr IV .Q31M ONE Rx#:[id number] cefTRIAXone 1,000 mg In 50 Sodium Chloride 0.9% 50 ml @ 100 mls/hr IVPB Q12HR [facility] Rx#:[id number] Oral 200 Blood Product 310 310 Rc As-1 Unit 0 310 [id number] Other: Voiding Method Toilet Toilet # Voids 3 3 Weight 57 kg Physical Exam revealed a 42-year-old female in no distress. Asymptomatic. Except for left flank pain. Head: Atraumatic, normocephalic. HEENT:[Neck is supple.] [No neck masses.] [No thyromegaly.] [No JVD.] Dry mucous membranes, PERRLA, EOMI, Chest: [Diminished breath sounds at the bases, no crackles or rhonchi or wheezes , symmetrical chest expansion noted..] Cardiac Exam: [Normal S1 and S2, no S3 gallop, no murmur.] Abdomen: [Soft, nontender, no megaly, no rebound, no guarding, normal bowel sounds. Lightly tender left flank area noted.] Extremities: [No clubbing, no edema, no cyanosis.] Neurological Exam: [No focal neurologic deficit.] Creatinine: Normal mood, affect and mental status examination. Skin: No rashes. Results - Laboratory Findings CBC and BMP: 01/22/18 03:28 01/22/18 13:23 PT/INR, D-dimer PT 11.3 sec (9.0-12.0) 01/20/18 15:03 INR 1.2 (<1.2) H 01/20/18 15:03 Abnormal lab findings: Abnormal Labs 01/20/18 01/20/18 01/20/18 15:00 15:03 15:03 WBC 15.3 H RBC 1.96 L Hgb 6.0 L* Hct 19.7 L* MCV 100.3 H MCHC 30.2 L RDW 18.5 H Neutrophils # 12.6 H Haptoglobin INR Sodium Potassium Chloride Carbon Dioxide BUN Creatinine Glucose POC Glucose (mg/dL) Calcium Iron Iron Saturation Ferritin Total Bilirubin AST Alkaline Phosphatase Total Creatine Kinase <20 L Total Protein Total Protein (PEP) Albumin Vitamin B12 Urine Appearance Urine Protein Urine Blood Ur Leukocyte Esterase Urine RBC Urine WBC Urine WBC Clumps Urine Bacteria Hyaline Casts Urine Mucus Urine Opiates Screen Ur Amphetamines Screen Free [place] LC, Quant Free Lambda LC, Quant Crossmatch See Detail 01/20/18 01/20/18 01/20/18 15:03 15:03 15:03 WBC RBC Hgb Hct MCV MCHC RDW Neutrophils # Haptoglobin INR 1.2 H Sodium 133 L Potassium Chloride Carbon Dioxide 13 L BUN 33 H Creatinine 2.30 H Glucose POC Glucose (mg/dL) Calcium 10.7 H Iron Iron Saturation Ferritin Total Bilirubin AST 69 H Alkaline Phosphatase 632 H Total Creatine Kinase Total Protein Total Protein (PEP) Albumin 3.1 L Vitamin B12 Urine Appearance Urine Protein Urine Blood Ur Leukocyte Esterase Urine RBC Urine WBC Urine WBC Clumps Urine Bacteria Hyaline Casts Urine Mucus Urine Opiates Screen Detected H Ur Amphetamines Screen Detected H Free [place] LC, Quant Free [place]ambda LC, Quant Crossmatch 01/20/18 01/20/18 01/20/18 15:03 15:29 23:27 WBC RBC Hgb Hct MCV MCHC RDW Neutrophils # Haptoglobin INR Sodium Potassium Chloride Carbon Dioxide BUN Creatinine Glucose POC Glucose (mg/dL) 104 H Calcium Iron Iron Saturation Ferritin Total Bilirubin AST Alkaline Phosphatase Total Creatine Kinase Total Protein Total Protein (PEP) Albumin Vitamin B12 Urine Appearance Cloudy H Urine Protein 1+ H Urine Blood Small H Ur Leukocyte Esterase Large H Urine RBC 69 H Urine WBC >182 H Urine WBC Clumps Moderate H Urine Bacteria Moderate H Hyaline Casts 19 H Urine Mucus Rare H Urine Opiates Screen Detected H Ur Amphetamines Screen Detected H Free [place] LC, Quant Free [place]ambda LC, Quant Crossmatch 01/21/18 01/21/18 01/21/18 05:39 05:39 05:39 WBC 14.4 H RBC 2.56 L Hgb 7.8 L D Hct 25.7 L MCV 100.4 H MCHC 30.4 L RDW 18.7 H Neutrophils # 12.6 H Haptoglobin 383.0 H INR Sodium 133 L Potassium Chloride 109 H Carbon Dioxide 15 L BUN 23 H Creatinine 2.07 H Glucose 61 L POC Glucose (mg/dL) Calcium Iron Iron Saturation Ferritin Total Bilirubin AST Alkaline Phosphatase 564 H Total Creatine Kinase Total Protein 6.1 L Total Protein (PEP) Albumin 2.6 L Vitamin B12 Urine Appearance Urine Protein Urine Blood Ur Leukocyte Esterase Urine RBC Urine WBC Urine WBC Clumps Urine Bacteria Hyaline Casts Urine Mucus Urine Opiates Screen Ur Amphetamines Screen Free [place] LC, Quant Free Lambda LC, Quant Crossmatch 01/21/18 01/21/18 01/22/18 05:39 05:39 03:28 WBC 14.9 H RBC 1.98 L Hgb 6.1 L* D Hct 19.7 L* MCV MCHC 30.8 L RDW 18.3 H Neutrophils # 12.3 H Haptoglobin INR Sodium Potassium Chloride Carbon Dioxide BUN Creatinine Glucose POC Glucose (mg/dL) Calcium Iron 27 L Iron Saturation 11.69 L Ferritin 1314.0 H Total Bilirubin AST Alkaline Phosphatase Total Creatine Kinase Total Protein Total Protein (PEP) 5.6 L Albumin Vitamin B12 2632.0 H Urine Appearance Urine Protein Urine Blood Ur Leukocyte Esterase Urine RBC Urine WBC Urine WBC Clumps Urine Bacteria Hyaline Casts Urine Mucus Urine Opiates Screen Ur Amphetamines Screen Free [place] LC, Quant 8.38 H Free Lambda LC, Quant 7.94 H Crossmatch 01/22/18 01/22/18 01/22/18 03:28 12:30 13:23 WBC RBC Hgb Hct MCV MCHC RDW Neutrophils # Haptoglobin INR Sodium 136 L Potassium 2.8 L 3.3 L Chloride Carbon Dioxide 21 L BUN 19 H Creatinine 1.71 H Glucose 109 H POC Glucose (mg/dL) Calcium Iron Iron Saturation Ferritin Total Bilirubin 1.8 H AST 97 H Alkaline Phosphatase 611 H Total Creatine Kinase Total Protein 5.5 L Total Protein (PEP) Albumin 2.3 L Vitamin B12 Urine Appearance Cloudy H Urine Protein 2+ H Urine Blood Small H Ur Leukocyte Esterase Large H Urine RBC 28 H Urine WBC 147 H Urine WBC Clumps Urine Bacteria Rare H Hyaline Casts Urine Mucus Urine Opiates Screen Ur Amphetamines Screen Free [place] LC, Quant Free [place]ambda LC, Quant Crossmatch - Diagnostic Findings Chest x-ray: image reviewed (Chest x-ray on admission showed no evidence of active disease.) Assessment and Plan Assessment: Impression: 1 acute hydronephrosis secondary to left ureteral calculus, status post stent placement. 2 acute kidney injury secondary to hydronephrosis, however possibility of sepsis and urinary tract infection, is very likely. 3 acute urinary tract infection and sepsis, improving with antibiotics and fluid boluses. 4 acute metabolic encephalopathy, resolving with treatment. 5 severe anemia with macrocytosis, no evidence of hemolysis or microangiopathic process. No evidence of schistocytes on the peripheral smear. LDH and bilirubin are normal platelets are normal. This is being addressed by hematology on the case. Patient should actually have further anemia workup for possible GI blood losses. Apparently the patient has been on dapsone, and that would make the patient at relative risk for hemolysis secondary to G6PD deficiency and she is now on folic acid. Recommendation: Continue present supportive care measures, again I have instructed the nurses taking care of the patient to transfer the patient to the ICU if her blood pressure keeps fluctuating down and if she cannot maintain a mean arterial pressure of 65 or higher. We'll continue to follow. Time with Patient: Greater than 30
[2018-01-22 17:16] VITALS: BP 99/62; PULSE 80; TEMP 98.5
--- NOTE | 2018-01-22 22:01 | DS ---
DISCHARGE SUMMARY DATE OF SERVICE: 01/22/2018 FINAL DIAGNOSES: 1. Severe anemia. Rule out hemolytic anemia. Rule out low-grade TTP. 2. Acute urinary tract infection with possible sepsis. 3. Status post cystoscopy, left ureteral stent insertion for left hydronephrosis secondary to left distal ureteral calculus. 4. Change in mental status; possible acute metabolic encephalopathy. 5. Macrocytic anemia. 6. Increased white count. 7. Increased creatinine with possible acute renal failure, possibly prerenal, multifactorial. 8. Increased AST. 9. History of dermatitis herpetiformis. 10.History of reflex sympathetic dystrophy. 11.History of hysterectomy. 12.History of carpal tunnel syndrome. 13.History of attention deficit hyperactivity disorder. 14.Remote history of nicotine dependence. DISCHARGE DISPOSITION: The patient will be discharged in stable condition with guarded prognosis. The patient will be transferred to [facility] for further evaluation and treatment. Total time taken 35 minutes. HISTORY OF PRESENT ILLNESS: This 42-year-old woman with a past medical history of multiple medical problems was admitted with abdominal pain as well as possible UTI with sepsis and severe anemia. The patient underwent cystoscopy procedure, as mentioned earlier, by Dr. Edwards. The patient was also started on broad-spectrum IV antibiotics. Multiple consultants saw the patient. Patient was also given transfusion; however, after one unit transfusion hemoglobin improved from 6 to 7.8 on 01/21/2018. But on 01/22 the hemoglobin is 6.1. The indicators of hemolysis are high haptoglobin of 383; other parameters are reticulocyte count, normal at 1.8, bilirubin 1.8. LDH was normal. The patient did not improve. Continues to have borderline hypotension and shaking chills. Antibiotics are changed to Zosyn. Because of the lack of improvement and multiple complex medical issues, as mentioned earlier, the case was discussed with [facility] and the patient will be transferred to [facility] ICU for further evaluation and treatment. Total time taken 35 minutes. On exam, vital signs are stable. CARDIOVASCULAR SYSTEM: S1, S2 normal. ABDOMEN: Soft. NERVOUS SYSTEM: No focal deficit. The pulse is 70, blood pressure 89/54, respiration 16, temperature 99.2, pulse ox 99% on 2 L. Please refer to the chart for the discharge medications. MMODL / IJN: [id number] /
--- NOTE | 2018-01-23 02:46 | PN ---
PROGRESS NOTE DATE OF SERVICE: 01/22/2018. REASON FOR FOLLOWUP: Sepsis with right side pyelonephritis. INTERVAL HISTORY: The patient was seen on rounds this afternoon. The patient has been afebrile. The patient did spike a fever of 101.2 this morning, the patient has been feeling weak and tired and her blood pressure has been marginal. She also noticed to have a drop in her hemoglobin for which the patient getting blood transfusion. The patient denies having any headache. No chest pain. No shortness of breath. Occasional cough. No abdominal pain or any diarrhea. REVIEW OF SYSTEMS: Positive points have been mentioned in HPI. Other systems have been negative. Past medical and surgical history reviewed. No change. Medication reviewed. PHYSICAL EXAMINATION: Blood pressure is 91/51 with a pulse of 80, temperature 98.4. T-max is 102, she is 96% on 2 L nasal cannula. General description is a middle-aged female lying in bed in no distress. HEENT examination: Pallor. No scleral icterus. Oral mucosa membranes are dry. Lungs unlabored breathing, clear to auscultation anteriorly. Heart S1, S2. Regular rate and rhythm. ABDOMEN: Soft. No tenderness. No guarding or rigidity. Extremities are no edema of the feet. Skin examination: No rash or mass palpable. LABS: Hemoglobin 6.1, white count 14.9 with a BUN of 19, creatinine 1.71. Initial UA has been negative. DIAGNOSTIC IMPRESSION AND PLAN: Patient with sepsis, source is urinary in this patient who did have obstructed kidney on the left side status post stent placement, now with fever despite being on the Rocephin, antibiotic has been adjusted to Zosyn q.8 hours. Repeat urine culture has been ordered as well as blood cultures, adjust further on the basis of culture and clinical response. Continue supportive care. MMODL / IJN: [id number] /
[2018-01-23 03:45] LABS: DNA Double-Stranded NEGATIVE (NEGATIVE)
[2018-01-25 14:32] LABS: C-ANCA <1:20 Titer (<1:20); P-ANCA <1:20 Titer (<1:20)
[2018-01-26 13:44] LABS: Albumin 2.26 g/dL (3.80-4.90); Gamma Globulin 1.15 g/dL (0.70-1.50)
== END 2018-01-22 19:03 | disposition short-term general hospital (02) | DRG 853 ==
LOC: EC 14:08 → 3SCARD 18:29 → 4SSUR 01-22 02:19
PROVIDERS: ADMIT Internal Medicine; ATTEND Internal Medicine
PROC: 30233N1 Transfusion of Nonautologous Red Blood Cells into Peripheral Vein, Percutaneous Approach (ICD-10-PCS; principal; 2018-01-20)
PROC: 0T778DZ Dilation of Left Ureter with Intraluminal Device, Via Natural or Artificial Opening Endoscopic (ICD-10-PCS; 2018-01-21)
DX: A41.9 Sepsis, unspecified organism (principal); G93.41 Metabolic encephalopathy; E87.2 Acidosis; G90.50 Complex regional pain syndrome I, unspecified; N13.2 Hydronephrosis with renal and ureteral calculous obstruction; N17.9 Acute kidney failure, unspecified; D50.9 Iron deficiency anemia, unspecified; D75.89 Other specified diseases of blood and blood-forming organs; E83.52 Hypercalcemia; E87.6 Hypokalemia; F51.04 Psychophysiologic insomnia; F90.9 Attention-deficit hyperactivity disorder, unspecified type; G89.4 Chronic pain syndrome; I10 Essential (primary) hypertension; J45.909 Unspecified asthma, uncomplicated; K21.9 Gastro-esophageal reflux disease without esophagitis; Z87.442 Personal history of urinary calculi; Z87.891 Personal history of nicotine dependence; Z90.710 Acquired absence of both cervix and uterus; Z79.891 Long term (current) use of opiate analgesic; Z79.899 Other long term (current) drug therapy
CPT/HCPCS: 36415; 70450; 71046; 74176; 80053; 80074; 80306; 81001; 81025; 82140; 82550; 82553; 82607; 82728; 83010; 83540; 83550; 83605; 83615; 83883; 83921; 84132; 84165; 84484; 85025; 85045; 85610; 85730; 86038; 86160; 86225; 86255; 86334; 86850; 86900; 86901; 86920; 87040; 87086; 87205; 93005; 96361; 96365; 96375; 96376; 99291

== ENCOUNTER → 2018-02-11 | Outpatient (CLI) | payer MEDICARE, OTHER ==
[2018-02-11 17:36] LABS: Anisocytosis Slight; Basophils # (A) 0.1 k/uL (0-0.2); Basophils % (A) 1 %; Eosinophils # (A) 0.2 k/uL (0-0.7); Eosinophils % (A) 3 %; Lymphocytes # (A) 2.8 k/uL (1.0-4.8); Lymphocytes % (A) 36 %; MCH 30.8 pg (25.0-35.0); MCHC 32.2 g/dL (31.0-37.0); MCV 95.5 fL (80.0-100.0); Mean Platelet Volume 6.6; Monocytes # (A) 0.3 k/uL (0-1.0); Monocytes % (A) 3 %; Neutrophils # (A) 4.4 k/uL (1.3-7.7); Neutrophils % (A) 55 %; Platelet Count 277 k/uL (150-450); RBC 3.56 m/uL (3.80-5.40); RDW 16.1 % (11.5-15.5); WBC 7.9 k/uL (3.8-10.6)
[2018-02-11 17:39] LABS: Appearance,Urine Clear (Clear); Bacteria,Urine Rare /hpf; Bilirubin,Urine Negative (Negative); Blood,Urine Large (Negative); Budding Yeast,Urine Occasional /hpf; Color,Urine Light Yellow; Glucose,Urine (UA) Negative (Negative); Ketones,Urine Negative (Negative); Leukocyte Esterase,Urine Large (Negative); Nitrite,Urine Negative (Negative); Protein,Urine 1+ (Negative); RBC,Urine 25 /hpf (0-5); Specific Gravity,Urine 1.005 (1.001-1.035); Squamous Epithelial Cell,Urine 2 /hpf (0-4); Urobilinogen,Urine <2.0 mg/dL (<2.0); WBC,Urine 22 /hpf (0-5)
[2018-02-11 17:48] LABS: Albumin 3.6 g/dL (3.5-5.0); Calcium 10.6 mg/dL (8.4-10.2); Total Bilirubin 0.4 mg/dL (0.2-1.3); Total Protein 7.6 g/dL (6.3-8.2)
== END | disposition home or self-care (01) ==
LOC: LABPAT 16:35
PROVIDERS: ATTEND Urology
DX: Z01.812 Encounter for preprocedural laboratory examination (principal); N20.2 Calculus of kidney with calculus of ureter; R31.29 Other microscopic hematuria
CPT/HCPCS: 36415; 80053; 81001; 85025; 87086

== ENCOUNTER 2018-02-18 08:53 | Day surgery (SDC) | payer MEDICARE, OTHER ==
--- NOTE | 2018-02-15 17:34 | P.GSHP ---
History of Present Illness H&P Date: 02/15/18 Chief Complaint: Flank and abdominal pain The patient is a 42-year-old white female hospitalized in late December 2017 with a 2 week history of back and abdominal pain. She described the pain as being predominantly right-sided. She is a vague historian. She denies any prior history of urolithiasis. She was treated with antibiotics as an outpatient, but stated that her symptoms worsened. She was also noted to be confused. Evaluation in the emergency room included a CT scan, which revealed several left lower pole renal calculi measuring up to 1 cm as well as left hydronephrosis due to a 9 mm left distal ureteral calculus. She underwent placement of a left ureteral stent during that hospitalization. Urine and blood cultures were negative. She was ultimately transferred to [facility] and was transfused. It is felt that her anemia is due to chronic use of Dapsone. She now comes for cystoscopy, stent removal, and ureteroscopy with laser lithotripsy. - Constitutional Constitutional: Denies chills, Denies fever - Gastrointestinal Gastrointestinal: Reports abdominal pain - Genitourinary (Female) Genitourinary: Reports flank pain, Reports urinary frequency Past Medical History Past Medical History: Skin Disorder Additional Past Medical History / Comment(s): DERMATITIS HERPETIFORMUM; Reflex Sympathic Dystrophy; Anemia History of Any Multi-Drug Resistant Organisms: None Reported Past Surgical History: Section, Hysterectomy, Uterine Ablation Additional Past Surgical History / Comment(s): carpal tunnel surg Past Anesthesia/Blood Transfusion Reactions: Postoperative Nausea & Vomiting ( PONV) Past Psychological History: ADD/ADHD Smoking Status: Former smoker Past Alcohol Use History: Occasional Past Drug Use History: None Reported Medications and Allergies Home Medications Medication Instructions Recorded Confirmed Type Dapsone 100 mg PO DAILY 01/10/14 01/20/18 History Zolpidem Tartrate [Ambien] 10 mg PO HS 06/19/14 01/20/18 History Albuterol Inhaler [Ventolin Hfa 2 puff INHALATION RT-Q4H PRN 01/20/18 01/20/18 History Inhaler] Dextroamphetamine/Amphetamine 30 mg PO BID 01/20/18 01/20/18 History [Adderall] Gabapentin [Neurontin] 300 mg PO TID PRN 01/20/18 01/20/18 History HYDROcodone/APAP 7.5-325MG [[place] 1 tab PO TID PRN 01/20/18 01/20/18 History 7.5-325] Hydrocortisone Cream 1 applic TOPICAL BID PRN 01/20/18 01/20/18 History [Hydrocortisone 2.5% Cream] Methocarbamol [Robaxin] 500 mg PO Q8H PRN 01/20/18 01/20/18 History Nitrofurantoin Monohyd/M-Cryst 100 mg PO Q12HR 01/20/18 01/20/18 History [Macrobid] Omeprazole 20 mg PO DAILY PRN 01/20/18 01/20/18 History Ranitidine HCl [Zantac] 150 mg PO BID PRN 01/20/18 01/20/18 History SUMAtriptan SUCCINATE [Imitrex] 100 mg PO DAILY PRN 01/20/18 01/20/18 History Triamcinolone 0.1% Ointment 1 applic TOPICAL BID PRN 01/20/18 01/20/18 History [Kenalog 0.1% Ointment] methylPREDNISolone Dose Pack See Taper PO DIRECTED PRN 01/20/18 01/20/18 History [Medrol Dose Pack] Allergies Allergy/AdvReac Type Severity Reaction Status Date / Time latex AdvReac Rash/Hives Verified 01/20/18 14:27 Surgical - Exam - General well developed, well nourished, no distress - Neck no masses, trachea midline - Respiratory normal respiratory effort, clear to auscultation - Cardiovascular Rhythm: regular Abnormal Heart Sounds: no systolic murmur, no diastolic murmur, no rub, no S3 Gallop, no S4 Gallop, no click, no other - Abdomen Abdomen: soft, tender (Mild left CVA tenderness), no guarding, no rigid, no rebound - Psychiatric oriented to time, oriented to person, oriented to place, speech is normal, memory intact Assessment and Plan (1) Hydronephrosis with renal and ureteral calculus obstruction Status: Acute Code(s): N13.2 - HYDRONEPHROSIS WITH RENAL AND URETERAL CALCULOUS OBSTRUCTION SNOMED Code(s): 479019490 (2) Calculus of kidney Status: Acute Code(s): N20.0 - CALCULUS OF KIDNEY SNOMED Code(s): 49277570 (3) Calculus of ureter Status: Acute Code(s): N20.1 - CALCULUS OF URETER SNOMED Code(s): 73773112 Plan: Cystoscopy, left ureteral stent removal, left ureteroscopy with Holmium laser lithotripsy. An attempt will be made to fragment the renal calculi in addition to the ureteral calculus. The procedure has been reviewed in detail with the patient. She understands potential risks to include anesthesia, bleeding, infection, ureteral injury, and incomplete fragmentation of the calculi.
[2018-02-17 08:43] VITALS: BMI 22.1
[~2018-02-18 08:53] MED LIST: DEXAMETHASONE SOD PHOSPHATE 10 MG/ML 1 ML VIAL IV ONE; LACTATED RINGERS 1,000 ML IV SCH; LIDOCAINE 1% 20 ML VIAL (10MG/ML) FOR IV START INTRADERMA PRN; MIDAZOLAM (PF) 2 MG/2 ML VIAL IV PRN; ceFAZolin 1,000 MG in DEXTROSE/WATER 1 50ML.BAG IVPB ONE
--- NOTE | 2018-02-18 09:15 | XR ---
EXAMINATION TYPE: XR KUB DATE OF EXAM: 02/18/2018 HISTORY: Pain Comparison: None. Single KUB is submitted for interpretation. Findings: Right renal calculi: None Visualized. Right ureteral calculi: None Visualized. Left renal calculi: Left renal calculi noted lower pole measuring 7 and 6 mm respectively. Left ureteral calculi: Double pigtail left-sided ureteral stent in place. No definite calculus along the course of the ureter. Pelvic calcifications: None Visualized. Bowel gas pattern is unremarkable. No free air. No mass effects. IMPRESSION: 1. Double pigtail left-sided ureteral stent in place. No definite calculus along the course of the ur eter. 2. left renal calculi identified.
[2018-02-18] MEDS: ONDANSETRON 4 MG/2 ML VIAL IVP ONE ×2 (10:56→14:29)
[2018-02-18] MEDS ORDERED: MIDAZOLAM 2 MG/2 ML VIAL ONE (12:11)
[2018-02-18] MEDS ORDERED: LIDOCAINE 1% INJ 10MG/ML (20 ML MDV) ONE (12:11)
[2018-02-18] MEDS ORDERED: fentaNYL (PF) 50 MCG/ML 2 ML AMP ONE (12:11)
[2018-02-18] MEDS ORDERED: SUCCINYLCHOLINE CHLORIDE 100 MG/5 ML SYR IV ONE (12:11)
[2018-02-18] MEDS ORDERED: ePHEDrine SULFATE/0.9% NACL/PF 50 MG/5 ML SYRINGE IV ONE (12:11)
[2018-02-18] MEDS ORDERED: PROPOFOL 10 MG/ML 20 ML VIAL IV ONE (12:11)
[2018-02-18] MEDS ORDERED: HYDROmorphone (PF) 1 MG/ML ONE (12:11)
[2018-02-18 14:15] VITALS: TEMP 97
[2018-02-18] MEDS: MEPERIDINE 50 MG/ML SYRINGE IVP ONE ×2 (14:15→14:19)
--- NOTE | 2018-02-18 14:23 | FL ---
EXAMINATION TYPE: FL guidance operating room DATE OF EXAM: 02/18/2018 HISTORY: Flouroscopy time 44 seconds of fluoroscopy provided. IMPRESSION: 1. Fluoroscopy time.
[2018-02-18] MEDS ORDERED: KETOROLAC 30 MG/ML 1 ML VIAL IVP ONE (14:24)
[2018-02-18] MEDS: fentaNYL (PF) 50 MCG/ML 2 ML AMP IV PRN ×2 (14:30→14:37)
--- NOTE | 2018-02-18 14:40 | P.OP ---
Date of Procedure: 02/18/18 Preoperative Diagnosis: Left ureteral calculus, left renal calculi Postoperative Diagnosis: Same Procedure(s) Performed: Cystoscopy, left ureteral stent removal, left ureteronephroscopy with Holmium laser lithotripsy Anesthesia: TOM Surgeon: Bhavesh Edwards Estimated Blood Loss (ml): 5 IV fluids (ml): 600 Pathology: none sent Condition: stable Disposition: PACU Indications for Procedure: The patient is a 42-year-old white female hospitalized in late December 2017 with a 2 week history of back and abdominal pain. She described the pain as being predominantly right-sided. She is a vague historian. She denies any prior history of urolithiasis. She was treated with antibiotics as an outpatient, but stated that her symptoms worsened. She was also noted to be confused. Evaluation in the emergency room included a CT scan, which revealed several left lower pole renal calculi measuring up to 1 cm as well as left hydronephrosis due to a 9 mm left distal ureteral calculus. She underwent placement of a left ureteral stent during that hospitalization. Urine and blood cultures were negative. She was ultimately transferred to [facility] and was transfused. It is felt that her anemia is due to chronic use of Dapsone. She now comes for cystoscopy, stent removal, and ureteroscopy with laser lithotripsy. Operative Findings: Left mid-ureteral calculus. Several left lower pole renal calculi. Description of Procedure: The patient was taken to the operating room and placed in the dorsolithotomy position, with legs supported in Gilmer stirrups. The external genitalia was prepped and draped sterilely. The 30 lens was used to introduce the 22-Macedonian Stortz cystoscopic sheath through the urethra and into the bladder under direct vision. The bladder was examined in its entirety. No tumors or other abnormalities were seen. The distal end of the left ureteral stent was grasped with grasping forceps and removed along with the cystoscope. The [facility] semirigid ureteroscope was advanced into the bladder, and the left ureteral orifice was cannulated. The ureteroscope was advanced under direct vision up to the calculus, which appeared to be just above the iliac vessels. The 200 micron Holmium laser probe was passed through the ureteroscope, and lithotripsy was performed. After fragmenting the calculus, primarily utilizing a dusting technique, a 0.038 inch Glidewire was passed through the ureteroscope and up to the left renal pelvis. The ureteroscope was removed, and an 11/13-Macedonian ureteral access catheter was passed over the wire, up to the proximal ureter. The Olympus mini flexible ureteroscope was then passed through the ureteral access catheter sheath and up to the left renal pelvis. Each calyx was examined. Several calculi were seen within the lower pole calyces. These were fragmented well, leaving only one fragment exceeding 2 mm as this was within a calyx which was extremely hard to get to. The calculus within that calyx was fragmented, such that it was barely visible on fluoroscopy. The ureteroscope was slowly withdrawn under direct vision. There was no evidence of ureteral trauma. The patient tolerated the procedure well and was taken to the recovery room in stable condition.
[2018-02-18] MEDS: HYDROmorphone 1 MG/ML 1 ML SYRINGE IVP ONE ×2 (14:49→14:53)
[2018-02-18 15:11] VITALS: RESP 18
[2018-02-18 15:32] VITALS: BP 132/67; PULSE 78
== END 2018-02-18 15:55 | disposition home or self-care (01) ==
LOC: OR 08:53
PROVIDERS: ATTEND Urology
DX: F90.9 Attention-deficit hyperactivity disorder, unspecified type (principal); Z87.891 Personal history of nicotine dependence; N13.2 Hydronephrosis with renal and ureteral calculous obstruction; K21.9 Gastro-esophageal reflux disease without esophagitis; G90.50 Complex regional pain syndrome I, unspecified; J45.909 Unspecified asthma, uncomplicated; Z79.899 Other long term (current) drug therapy; Z91.040 Latex allergy status
CPT/HCPCS: 74018; 52310; C1769 ×2; J2250; J1100; J2175; J2405; J2001; J3010; J1885; J1170; J0690; J0330; J2704

== ENCOUNTER → 2018-04-07 | Outpatient (CLI) | payer MEDICARE, OTHER ==
[2018-04-07 17:56] LABS: Basophils # (A) 0.1 k/uL (0-0.2); Basophils % (A) 1 %; Eosinophils # (A) 0.4 k/uL (0-0.7); Eosinophils % (A) 6 %; HCT 38.6 % (34.0-46.0); HGB 12.3 gm/dL (11.4-16.0); Lymphocytes # (A) 3.2 k/uL (1.0-4.8); Lymphocytes % (A) 42 %; MCH 30.7 pg (25.0-35.0); MCHC 31.8 g/dL (31.0-37.0); MCV 96.5 fL (80.0-100.0); Mean Platelet Volume 6.7; Monocytes # (A) 0.4 k/uL (0-1.0); Monocytes % (A) 5 %; Neutrophils # (A) 3.4 k/uL (1.3-7.7); Neutrophils % (A) 45 %; Platelet Count 371 k/uL (150-450); WBC 7.5 k/uL (3.8-10.6)
[2018-04-07 18:22] LABS: Magnesium 1.7 mg/dL (1.6-2.3); Uric Acid 7.2 mg/dL (3.7-7.4)
[2018-04-07 22:51] LABS: Vitamin D 25 Hydroxy 20.5 ng/mL (30.0-100.0)
[2018-04-07 23:37] LABS: Parathyroid Hormone Intact 58.5 pg/mL (14.0-72.0)
--- NOTE | 2018-04-08 07:30 | US ---
EXAMINATION TYPE: US kidneys/renal and bladder DATE OF EXAM: 04/07/2018 COMPARISON: NONE CLINICAL HISTORY: N17.9 Acute Renal Failure. History of left kidney stones, surgery 3 weeks ago to re move. Left flank pain. Renal failure EXAM MEASUREMENTS: Right Kidney: 10.3 x 4.3 x 4.8 cm Left Kidney: 9.5 x 5.3 x 4.5 cm Right Kidney: no evidence of hydronephrosis Left Kidney: 2 stones lower pole = 0.6cm and 0.8cm. Lateral mid to lower pole appears heterogeneous a nd hypoechoic Bladder: appears wnl Bilateral Jets seen: no There is no evidence for hydronephrosis at this point in time. No masses are identified. The urinar y bladder is anechoic. Bilateral ureteral jets are seen. IMPRESSION: 1. Nonobstructing nephrolithiasis left kidney.
== END | disposition home or self-care (01) ==
LOC: RADUSWWP 16:01
PROVIDERS: ATTEND Family Medicine
DX: N20.0 Calculus of kidney (principal); N17.9 Acute kidney failure, unspecified
CPT/HCPCS: 76770; 82306; 83735; 83970; 84550; 85025